=== PATIENT | male | born 1990 | race Two or more races ===

== ENCOUNTER 2016-05-29 18:50 | Inpatient (IN) | payer BC ==
[2016-05-29 20:28] VITALS: BP 130/76
[2016-05-29] MEDS ORDERED: Maalox 30 mL Cup PO PRN (20:38)
[2016-05-29] MEDS ORDERED: Ipratropium Neb 0.5 mg/2.5 mL UD HHN PRN (20:38)
[2016-05-29] MEDS ORDERED: Magnesium Hydroxide (MOM) 30 mL UDC PO PRN (20:38)
[2016-05-29] MEDS ORDERED: Sodium Chloride 0.9% 1,000 ML IV SCH (20:45)
[2016-05-29] MEDS ORDERED: guaiFENesin 200 MG/10 ML UDC PO PRN (20:48)
[2016-05-29 21:28] LABS: HEMATOCRIT 46.2 % (39.0-49.0); MEAN CELL VOLUME 90.9 fl (80-99); MEAN CORPUSCULAR HEMOGLOBIN 31.5 pg (26.0-30.0); MEAN CORPUSCULAR HGB CONC 34.6 pg (28.0-36.0); MEAN PLATELET VOLUME 8.9 fl; PLATELET COUNT 218 Th/cmm (150-400); RED BLOOD COUNT 5.08 Mil/cmm (4.30-5.70); WHITE BLOOD COUNT 12.5 Th/cmm (4.8-10.8)
[2016-05-29] MEDS: Albuterol/Ipratropium Neb 3 ML AERS HHN PRN (21:35)
[2016-05-29 21:38] LABS: ALB/GLOB RATIO 1.2 (1.0-1.8); ALKALINE PHOSPHATASE 104 U/L (34-104); ANION GAP 26.8 (7.0-16.0); BILIRUBIN,TOTAL 0.5 mg/dL (0.3-1.0); BUN - UREA NITROGEN 8 mg/dL (7-25); CALCIUM SERUM 9.1 mg/dL (8.6-10.3); CHLORIDE 103 mEq/L (98-107); GLUCOSE 298 mg/dL (70-105); POTASSIUM SERUM 3.6 mEq/L (3.5-5.1); SGOT 16 U/L (13-39); SGPT/ALT 23 U/L (7-52); SODIUM SERUM 133 mEq/L (136-145)
[2016-05-29 21:42] LABS: BAND NEUTROPHILE 8 % (0-10); NEUTROPHILS 78 % (40-80); PLATELET ESTIMATE ADEQUATE (NORMAL); PLATELET MORPHOLOGY NORMAL (NORMAL); TOTAL CELLS COUNTED 100
[2016-05-29 21:51] LABS: CARBON DIOXIDE 6.8 mEq/L (21.0-31.0)
[2016-05-29] MEDS: Levofloxacin 500mg/100mL 500 MG/100 ML BAG IV SCH (22:08)
[2016-05-29] MEDS: Sodium Chloride 0.9% 1,000 ML IV SCH (22:09)
[2016-05-29] MEDS ORDERED: Sodium Bicarbonate 8.4% 50mEq PFS IVP ONE (23:13)
[2016-05-29] MEDS: INSULIN ASPART SLIDING SCALE 100 UNITS/ML UNIT SUBQ SCH (23:21)
[2016-05-29] MEDS: Sodium Bicarbonate 8.4% 50mEq PFS IVP SCH (23:22)
[2016-05-30] MEDS: Sodium Bicarbonate 8.4% 50mEq PFS IVP SCH (03:55)
[2016-05-30] MEDS: INSULIN ASPART SLIDING SCALE 100 UNITS/ML UNIT SUBQ SCH ×5 (04:04→20:35)
[2016-05-30] MEDS: Sodium Chloride 0.9% 1,000 ML IV SCH ×2 (06:05→20:08)
[2016-05-30 07:14] LABS: HEMOGLOBIN 14.3 gm/dL (13.2-17.3); MEAN CELL VOLUME 89.8 fl (80-99); MEAN CORPUSCULAR HEMOGLOBIN 31.2 pg (26.0-30.0); MEAN CORPUSCULAR HGB CONC 34.7 pg (28.0-36.0); MEAN PLATELET VOLUME 8.4 fl; PLATELET COUNT 201 Th/cmm (150-400); RED BLOOD COUNT 4.58 Mil/cmm (4.30-5.70); RED CELL DISTRIBUTION WIDTH 11.5 % (11.5-20.0); WHITE BLOOD COUNT 10.5 Th/cmm (4.8-10.8)
[2016-05-30 07:27] LABS: HEMATOCRIT 41.1 % (39.0-49.0)
[2016-05-30 07:28] LABS: ALB/GLOB RATIO 1.1 (1.0-1.8); ALKALINE PHOSPHATASE 82 U/L (34-104); BILIRUBIN,TOTAL 0.5 mg/dL (0.3-1.0); BUN - UREA NITROGEN 8 mg/dL (7-25); CALCIUM SERUM 8.7 mg/dL (8.6-10.3); CARBON DIOXIDE 13.1 mEq/L (21.0-31.0); CHLORIDE 108 mEq/L (98-107); CHOLESTEROL 161 mg/dL (<200); CREATININE - SERUM 0.8 mg/dL (0.7-1.3); GLUCOSE 190 mg/dL (70-105); MAGNESIUM 2.1 mg/dL (1.9-2.7); SGOT 12 U/L (13-39); SGPT/ALT 18 U/L (7-52); SODIUM SERUM 136 mEq/L (136-145); TRIGLYCERIDES 94 mg/dL (<150)
[2016-05-30 07:49] LABS: ANION GAP 17.8 (7.0-16.0)
[2016-05-30 07:50] LABS: POTASSIUM SERUM 2.9 mEq/L (3.5-5.1)
[2016-05-30] MEDS ORDERED: SODIUM CHLORIDE 0.9% IV ONE (08:07)
[2016-05-30] MEDS ORDERED: POTASSIUM CHLORIDE IV ONE (08:07)
[2016-05-30] MEDS ORDERED: LIDOCAINE IV ONE (08:07)
[2016-05-30 08:31] LABS: BAND NEUTROPHILE 18 % (0-10); NEUTROPHILS 58 % (40-80); TOTAL CELLS COUNTED 100
[2016-05-30 08:32] LABS: PLATELET ESTIMATE ADEQUATE (NORMAL); PLATELET MORPHOLOGY NORMAL (NORMAL)
[2016-05-30] MEDS ORDERED: Pneumococcal Vaccine 0.5 mL Vial IM ONE (09:00)
[2016-05-30] MEDS ORDERED: Influenza Vaccine 0.5 mL Syr IM ONE (09:00)
--- NOTE | 2016-05-30 11:57 | Diagnostic Imaging Report ---
Portable chest x-ray HISTORY: Pneumonia The heart size is normal. Infiltrate noted in the right lung base. This may be chronic. However, pneumonia cannot be excluded. Clinical correlation is needed. No hilar or mediastinal abdomen amenities. IMPRESSION: 1. Right lower lobe infiltrate. Findings may be associated with pneumonia. Clinical correlation is needed.
--- NOTE | 2016-05-30 14:55 | Internal Medicine Prog Note ---
Internal Medicine Subjective - Subjective Service Date: 05/30/16 ([facility] dictated [id number]) Internal Medicine Objective - Results Result Diagrams: 05/30/16 06:45 05/30/16 06:45 Recent Labs: Laboratory Last Values WBC 10.5 Th/cmm (4.8-10.8) 05/30/16 06:45 RBC 4.58 Mil/cmm (4.30-5.70) 05/30/16 06:45 Hgb 14.3 gm/dL (13.2-17.3) 05/30/16 06:45 Hct 41.1 % (39.0-49.0) D 05/30/16 06:45 MCV 89.8 fl (80-99) 05/30/16 06:45 MCH 31.2 pg (26.0-30.0) H 05/30/16 06:45 MCHC Differential 34.7 pg (28.0-36.0) 05/30/16 06:45 RDW 11.5 % (11.5-20.0) 05/30/16 06:45 Plt Count 201 Th/cmm (150-400) 05/30/16 06:45 MPV 8.4 fl 05/30/16 06:45 Band Neutrophils % 18 % (0-10) H 05/30/16 06:45 Neutrophils (Manual) 58 % (40-80) 05/30/16 06:45 Lymphocytes 11 % (20-50) L 05/30/16 06:45 Monocytes 13 % (2-10) H 05/30/16 06:45 Eosinophils Not Reportable 05/30/16 06:45 Platelet Estimate ADEQUATE (NORMAL) 05/30/16 06:45 Platelet Morphology NORMAL (NORMAL) 05/30/16 06:45 RBC Morph Micro Appear NORMAL (NORMAL) 05/30/16 06:45 Sodium 136 mEq/L (136-145) 05/30/16 06:45 Potassium 2.9 mEq/L (3.5-5.1) L* 05/30/16 06:45 Chloride 108 mEq/L (98-107) H 05/30/16 06:45 Carbon Dioxide 13.1 mEq/L (21.0-31.0) L 05/30/16 06:45 Anion Gap 17.8 (7.0-16.0) H 05/30/16 06:45 BUN 8 mg/dL (7-25) 05/30/16 06:45 Creatinine 0.8 mg/dL (0.7-1.3) 05/30/16 06:45 Est GFR ( Amer) > 60.0 ml/min 05/30/16 06:45 Est GFR (Non-Af Amer) > 60.0 ml/min 05/30/16 06:45 BUN/Creatinine Ratio 10.0 05/30/16 06:45 Glucose 190 mg/dL (70-105) H 05/30/16 06:45 POC Glucose 241 MG/DL (70 - 105) H 05/30/16 12:17 Hemoglobin A1c % 14.0 % (4.0-6.0) H 05/29/16 21:03 Calcium 8.7 mg/dL (8.6-10.3) 05/30/16 06:45 Magnesium 2.1 mg/dL (1.9-2.7) 05/30/16 06:45 Total Bilirubin 0.5 mg/dL (0.3-1.0) 05/30/16 06:45 AST 12 U/L (13-39) L 05/30/16 06:45 ALT 18 U/L (7-52) 05/30/16 06:45 Alkaline Phosphatase 82 U/L (34-104) 05/30/16 06:45 Total Protein 6.9 gm/dL (6.0-8.3) 05/30/16 06:45 Albumin 3.6 gm/dL (4.2-5.5) L 05/30/16 06:45 Globulin 3.3 gm/dL 05/30/16 06:45 Albumin/Globulin Ratio 1.1 (1.0-1.8) 05/30/16 06:45 Triglycerides 94 mg/dL (<150) 05/30/16 06:45 Cholesterol 161 mg/dL (<200) 05/30/16 06:45 LDL Cholesterol Direct 103 mg/dL (75-193) 05/30/16 06:45 HDL Cholesterol 51 mg/dL (23-92) 05/30/16 06:45 TSH 0.41 uIU/ml (0.34-5.60) 05/30/16 06:45 - Physical Exam Vitals and I&O: Vital Signs Temp 99.5 F 05/30/16 11:45 Pulse 96 05/30/16 11:45 Resp 18 05/30/16 11:45 BP 123/70 05/30/16 11:45 Pulse Ox 97 05/30/16 11:45 Intake & Output 05/29/16 05/30/16 05/30/16 18:59 06:59 18:59 Intake Total 1291.667 Balance 1291.667 Weight (lbs) 123 lb Intake: Intake, IV Amount 1091.667 Levofloxacin 500mg/100mL 100 500 mg In 100 ml @ 100 mls/hr IV Q24HR [facility] Rx#: [id number] Sodium Chloride 0.9% 1, 991.667 000 ml @ 125 mls/hr IV . Q8H [facility] Rx#:[id number] Oral 200 Other: # Voids 1,900 # Bowel Movements 0 Stool Characteristics Soft Active Medications: Current Medications Acetaminophen (Tylenol) 650 mg PO Q6H PRN PRN Reason: Mild Pain/Headache/T above 101 Stop: 07/28/16 20:37 Last Admin: 05/30/16 05:30 Dose: 650 mg Al Hydrox/Mg Hydrox/Simethicone (Maalox) 30 ml PO Q6H PRN PRN Reason: GI DISTRESS Stop: 07/28/16 20:37 Last Admin: 05/29/16 23:20 Dose: 30 ml Albuterol/Ipratropium (Duoneb Neb) 3 ml HHN Q4H PRN PRN Reason: Wheezing Stop: 07/28/16 20:37 Last Admin: 05/29/16 21:35 Dose: 3 ml Clonidine HCl (Catapres) 0.1 mg PO Q6HR PRN PRN Reason: SBP GREATER THAN 160 Stop: 07/28/16 20:47 Glipizide (Glucotrol) 5 mg PO QDAC [facility] Stop: 07/29/16 06:29 Last Admin: 05/30/16 06:04 Dose: 5 mg Guaifenesin (Robitussin) 200 mg PO Q4HR PRN PRN Reason: Cough or Congestion Stop: 07/28/16 20:47 Heparin Sodium (Porcine) (Heparin) 5,000 units SUBQ Q12HR [facility] Stop: 07/28/16 20:59 Last Admin: 05/30/16 08:58 Dose: 5,000 units Levofloxacin (Levaquin Pb) 500 mg in 100 mls @ 100 mls/hr IV Q24HR [facility] Stop: 07/28/16 20:59 Last Infusion: 05/29/16 23:08 Dose: Infused Sodium Chloride (Nacl 0.9%) 1,000 mls @ 125 mls/hr IV .Q8H [facility] Stop: 07/28/16 20:47 Last Admin: 05/30/16 06:05 Dose: 125 mls/hr Insulin Aspart (Novolog Insulin Sliding Scale) 0 units SUBQ Q4HR [facility] PRN Reason: Protocol Stop: 07/29/16 00:00 Last Admin: 05/30/16 12:39 Dose: 6 units Ipratropium [place] (Atrovent Neb 0.5mg/2.5ml) 0.5 mg HHN Q6H PRN PRN Reason: Shortness of Breath Stop: 07/28/16 20:37 Magnesium Hydroxide (Milk Of Magnesia) 30 ml PO HS PRN PRN Reason: Constipation Stop: 07/28/16 20:37 Meclizine HCl (Antivert) 25 mg PO DAILY PRN PRN Reason: Nausea / Vomiting Stop: 07/28/16 20:47 Metformin HCl (Glucophage) 850 mg PO BIDWM [facility] Stop: 07/29/16 07:59 Last Admin: 05/30/16 08:57 Dose: 850 mg Ondansetron HCl (Zofran) 4 mg IVP Q6H PRN PRN Reason: Nausea / Vomiting Stop: 07/28/16 20:37 Last Admin: 05/30/16 12:42 Dose: 4 mg Zolpidem Tartrate (Ambien) 5 mg PO HS PRN PRN Reason: Insomnia Stop: 07/28/16 20:37
--- NOTE | 2016-05-30 15:48 | History & Physical ---
CHIEF COMPLAINT: Cough and chest congestion. HISTORY OF PRESENT ILLNESS: This is a 25-year-old male who is a direct admission from [facility]. According to the patient, he was having a 1-day history of shortness of breath and a 1-week history of productive cough. The patient states that he has been having difficulty to expectorate his secretions with his cough, is also associated with chest pain that is nonradiating. Due to insurance purposes, the patient is now here at [facility]. PAST MEDICAL HISTORY: Type 2 diabetes. PAST SURGICAL HISTORY: None per patient. ALLERGIES: No known allergies. SOCIAL HISTORY: The patient was a previous smoker, but denies any smoking, any streets drug or any alcohol. FAMILY HISTORY: Noncontributory. REVIEW OF SYSTEMS: CONSTITUTIONAL: Denies any fevers, any chills. HEENT: Denies any headache, any earache, nasal drainage or any throat pain. CARDIOVASCULAR: Denies any chest pain. RESPIRATORY: Admits to cough. GASTROINTESTINAL: Denies any nausea, vomiting, abdominal pain. GENITOURINARY: Denies any dysuria. All other systems are reviewed by me and are negative. PHYSICAL EXAMINATION: GENERAL: The patient is well developed, well nourished, in no acute distress. VITAL SIGNS: Temperature 99.5, heart rate 96, blood pressure 123/70, respirations 18, O2 97%. HEENT: Head; normocephalic, atraumatic. NECK: Supple. No mass. LUNGS: Few wheezes bilaterally upon auscultation. HEART: Regular rate and rhythm. No murmurs, no gallops. SKIN: Intact, warm and dry to touch. ABDOMEN: Soft, nontender, nondistended. Positive bowel sounds in all 4 quadrants. LABORATORY DATA: WBC 10.5, H and H of 14.3 and 41.1, platelet of 201. Sodium 136, potassium 2.9, BUN of 8, creatinine 0.8, hemoglobin A1c of 14. The patient had a chest x-ray done and the impression is right lower lobe infiltrate. Findings may be associated with pneumonia. ASSESSMENT: Diabetes, out of control, pneumonia, dehydration and diabetic ketoacidosis. PLAN: We will admit patient to the telemetry unit. The patient will be on IV antibiotics. We will monitor the patient's glucose level. We will put the patient on respiratory protocol. We will continue to monitor the patient. JOB# [id number]
[2016-05-30] MEDS ORDERED: Sodium Bicarbonate 8.4% 50mEq PFS IVP ONE (16:32)
[2016-05-30] MEDS: Levofloxacin 500mg/100mL 500 MG/100 ML BAG IV SCH (20:33)
--- NOTE | 2016-05-31 05:07 | Admit Criteria Form ---
Admit Criteria Forms - Admit Criteria Diagnosis: DIABETES Clinical Indications for Admission to Inpatient Care (Place 'X' for any and all applicable criteria): Admission is indicated by presence of ALL (if I & II) or ANY ONE (if III or IV) of the following (1)(2)(3)(4): [ X]I. Diabetes is uncontrolled as indicated by ANY ONE of the following: [ ]a) Diabetic ketoacidosis as indicated by ALL of the following (8): [ ]i) Hyperglycemia (eg, plasma glucose greater than 200 mg/ dL (11.1 mmol/L)) [ ]ii) Acidosis (eg, arterial pH less than 7.30, serum bicarbonate level less than 15 mEq/L (mmol/L)) [ ]iii) Moderate ketonuria or ketonemia [ ]b) Hyperglycemic hyperosmolar state as indicated by ALL of the following(9)(10): [ ]i) Neurologic dysfunction (eg, stupor, coma, hemiparesis , seizure)(13) [ ]ii) Plasma glucose greater than 600 mg/dL (33.3 mmol/L) [ ]iii) Serum osmolality greater than 320 mOsm/kg (mmol/kg) [X ]c) Severe signs or symptoms secondary to hyperglycemia indicated by ANY ONE of the following: [ ]i) Altered mental status(10) [ ]ii) Significant hypovolemia or dehydration [ ]iii) Intractable nausea or vomiting [ ]iv) Unexplained fever or severe infection [X ]v) Severe electrolyte abnormality (eg, hypokalemia, hyperkalemia, hypernatremia) [ X]II. Management at other levels of care (Also use Diabetes: Observation Care as appropriate) is not feasible because of ANY ONE of the following: [ ]a) Condition was not adequately corrected with treatment at other levels of care. [X ]b) Treatment at other levels of care is not appropriate because of condition severity (eg, hyperosmolar coma). [ ]III. Contraindications and/or Inappropriate clinical situations for Observational Care in patients with Diabetes, when ANY ONE of the following is required: [ ]a) Patient require specific diagnostic workup or therapeutic intervention 22 [ ]b) Patient with abnormal vital signs or altered mental status 23 [ ]IV. General contraindications and/or Inappropriate clinical situations for Observational Care in patients with Diabetes, when ANY ONE of the following is required: [ ]a) Prediction of prolongation of LOS based on ANY ONE of the following may be considered as a contraindication for observational care 2, 3, 4, 5, 6, 7, 8, 9, 10, 11 [ ]i) Age > 65 yrs. [ ]ii) Patient arriving by ambulance [ ]iii) Patient with high acuity [ ]iv) Patient requiring vital sign monitoring [ ]v) Patient on IV medication [ ]b) Systolic blood pressures 180mmHg 3,12 [ ]c) Patient with altered mental status including delirium and other alteration of consciousness, (3) [ ]d) Patient whose discharge disposition will be to a [place] [facility] home or rehabilitation home should not be managed in Emergency Department Observation Unit. CMS rule requires 3 days hospital stay before such placement.3,13 [ ]e) Patient with failure to thrive due to broad array of etiologies 3,16,17 [ ]f) Inability to ambulate 3,14 Extended stay beyond goal length of stay may be needed for(3)(20): [ ]a) Treatment of precipitating causes [ ]b) Development of hypoglycemia [ ]c) Complications of treatment [ ]d) Complications of decompensated diabetes (eg, acute gastric dilatation, persistent metabolic or neurologic derangement) [ ]e) Active Comorbidities [ ]f) Older patients( 65 years or older) The original [facility] the [facility] content created by [employer] has been revised. The portions of the content which have been revised are identified through the use of italic text or in bold,and [facility] has neither reviewed nor approved the modified material. All other unmodified content is copyright [facility] [employer]. Please see references footnoted in the original [facility] edition 2016
[2016-05-31 05:58] LABS: HEMATOCRIT 42.9 % (39.0-49.0); HEMOGLOBIN 14.7 gm/dL (13.2-17.3); MEAN CELL VOLUME 91.6 fl (80-99); MEAN CORPUSCULAR HEMOGLOBIN 31.4 pg (26.0-30.0); MEAN CORPUSCULAR HGB CONC 34.2 pg (28.0-36.0); MEAN PLATELET VOLUME 8.6 fl; PLATELET COUNT 226 Th/cmm (150-400); RED BLOOD COUNT 4.69 Mil/cmm (4.30-5.70); RED CELL DISTRIBUTION WIDTH 11.9 % (11.5-20.0)
[2016-05-31] MEDS: Sodium Chloride 0.9% 1,000 ML IV SCH (06:15)
[2016-05-31 06:25] LABS: BAND NEUTROPHILE 8 % (0-10); EOSINOPHIL 1 % (0-5); NEUTROPHILS 76 % (40-80); TOTAL CELLS COUNTED 100
[2016-05-31 06:26] LABS: PLATELET ESTIMATE ADEQUATE (NORMAL); PLATELET MORPHOLOGY NORMAL (NORMAL)
[2016-05-31 06:54] LABS: MAGNESIUM 1.9 mg/dL (1.9-2.7); PHOSPHOROUS 1.3 mg/dL (2.5-5.0)
[2016-05-31 06:55] LABS: ANION GAP 22.5 (7.0-16.0); BUN - UREA NITROGEN 6 mg/dL (7-25); BUN/CREATININE RATIO 7.5; CALCIUM SERUM 9.4 mg/dL (8.6-10.3); CARBON DIOXIDE 11.7 mEq/L (21.0-31.0); CHLORIDE 104 mEq/L (98-107); CREATININE - SERUM 0.8 mg/dL (0.7-1.3); GLUCOSE 246 mg/dL (70-105); POTASSIUM SERUM 3.2 mEq/L (3.5-5.1); SODIUM SERUM 135 mEq/L (136-145)
[2016-05-31] MEDS: INSULIN ASPART SLIDING SCALE 100 UNITS/ML UNIT SUBQ SCH ×4 (06:56→21:04)
[2016-05-31 09:54] LABS: pH 7.32 (7.35-7.45)
[2016-05-31 09:55] LABS: ABG SOURCE Arterial; BE(B) -12.3 mmol/L (-3.0-3.0); FIO2 21; HCO3 11.9 mmol/L (20.0-26.0)
[2016-05-31 11:10] LABS: FOLIC ACID 11.8 ng/mL (>3.0)
[2016-05-31] MEDS ORDERED: Potassium Phosphate 30 MMOLE in Sodium Chloride 0.9% 250 ML IV ONE (11:15)
--- NOTE | 2016-05-31 12:33 | Diagnostic Imaging Report ---
CT Chest without IV contrast HISTORY: Pneumonia COMPARISON: Chest x-ray 05/30/2016. Technique: Axial images were obtained from the base of the neck to the upper abdomen without IV contrast. Reconstructions were made. Total DLP 129 CTD I 3.5 Findings: Exam is limited due to lack of IV contrast. No evidence of mediastinal lymphadenopathy. The heart size is normal. No evidence of any aortic aneurysm. Extensive right lung infiltrates are noted involving the right lower lobe with small right effusion. Consolidative changes are noted. Minimal left basal airspace disease is noted. The upper abdomen demonstrates no acute abnormalities. The osseous structures are intact. IMPRESSION: Extensive right lower lobe infiltrates with areas of consolidation and small right effusion noted. Minimal left basal airspace disease.
[2016-05-31] MEDS ORDERED: POTASSIUM PHOSPHATE IV ONE (15:00)
[2016-05-31] MEDS ORDERED: SODIUM CHLORIDE IV ONE (15:00)
--- NOTE | 2016-05-31 15:53 | Internal Medicine Prog Note ---
Internal Medicine Subjective - Subjective Service Date: 05/31/16 Patient seen and examined:: with staff Patient is:: awake Internal Medicine Objective - Results Result Diagrams: 05/31/16 05:38 05/31/16 05:38 Recent Labs: Laboratory Last Values WBC 12.0 Th/cmm (4.8-10.8) H 05/31/16 05:38 RBC 4.69 Mil/cmm (4.30-5.70) 05/31/16 05:38 Hgb 14.7 gm/dL (13.2-17.3) 05/31/16 05:38 Hct 42.9 % (39.0-49.0) 05/31/16 05:38 MCV 91.6 fl (80-99) 05/31/16 05:38 MCH 31.4 pg (26.0-30.0) H 05/31/16 05:38 MCHC Differential 34.2 pg (28.0-36.0) 05/31/16 05:38 RDW 11.9 % (11.5-20.0) 05/31/16 05:38 Plt Count 226 Th/cmm (150-400) 05/31/16 05:38 MPV 8.6 fl 05/31/16 05:38 Band Neutrophils % 8 % (0-10) 05/31/16 05:38 Neutrophils (Manual) 76 % (40-80) 05/31/16 05:38 Lymphocytes 6 % (20-50) L 05/31/16 05:38 Monocytes 9 % (2-10) 05/31/16 05:38 Eosinophils 1 % (0-5) 05/31/16 05:38 Platelet Estimate ADEQUATE (NORMAL) 05/31/16 05:38 Platelet Morphology NORMAL (NORMAL) 05/31/16 05:38 RBC Morph Micro Appear NORMAL (NORMAL) 05/31/16 05:38 Specimen Source Arterial 05/31/16 09:35 Sample Site RB 05/31/16 09:35 pH 7.32 (7.35-7.45) L 05/31/16 09:35 pCO2 23.0 mmHg (35.0-45.0) L* 05/31/16 09:35 pO2 94.0 mmHg (80.0-100.0) 05/31/16 09:35 HCO3 11.9 mmol/L (20.0-26.0) L 05/31/16 09:35 Base Excess -12.3 mmol/L (-3.0-3.0) L 05/31/16 09:35 O2 Saturation 97.0 % (92.0-100.0) 05/31/16 09:35 Derrick Test NA 05/31/16 09:35 Vent Rate NA 05/31/16 09:35 Inspired O2 21 05/31/16 09:35 Tidal Volume NA 05/31/16 09:35 PEEP NA 05/31/16 09:35 Pressure (ins/psv/peep) NA 05/31/16 09:35 Critical Value E.WOOD 05/31/16 09:35 Sodium 135 mEq/L (136-145) L 05/31/16 05:38 Potassium 3.2 mEq/L (3.5-5.1) L 05/31/16 05:38 Chloride 104 mEq/L (98-107) 05/31/16 05:38 Carbon Dioxide 11.7 mEq/L (21.0-31.0) L 05/31/16 05:38 Anion Gap 22.5 (7.0-16.0) H 05/31/16 05:38 BUN 6 mg/dL (7-25) L 05/31/16 05:38 Creatinine 0.8 mg/dL (0.7-1.3) 05/31/16 05:38 Est GFR ( Amer) > 60.0 ml/min 05/31/16 05:38 Est GFR (Non-Af Amer) > 60.0 ml/min 05/31/16 05:38 BUN/Creatinine Ratio 7.5 05/31/16 05:38 Glucose 246 mg/dL (70-105) H 05/31/16 05:38 POC Glucose 366 MG/DL (70 - 105) H 05/31/16 11:43 Hemoglobin A1c % 14.0 % (4.0-6.0) H 05/29/16 21:03 Calcium 9.4 mg/dL (8.6-10.3) 05/31/16 05:38 Phosphorus 1.3 mg/dL (2.5-5.0) L 05/31/16 05:38 Magnesium 1.9 mg/dL (1.9-2.7) 05/31/16 05:38 Total Bilirubin 0.5 mg/dL (0.3-1.0) 05/30/16 06:45 AST 12 U/L (13-39) L 05/30/16 06:45 ALT 18 U/L (7-52) 05/30/16 06:45 Alkaline Phosphatase 82 U/L (34-104) 05/30/16 06:45 Total Protein 6.9 gm/dL (6.0-8.3) 05/30/16 06:45 Albumin 3.6 gm/dL (4.2-5.5) L 05/30/16 06:45 Globulin 3.3 gm/dL 05/30/16 06:45 Albumin/Globulin Ratio 1.1 (1.0-1.8) 05/30/16 06:45 Triglycerides 94 mg/dL (<150) 05/30/16 06:45 Cholesterol 161 mg/dL (<200) 05/30/16 06:45 LDL Cholesterol Direct 103 mg/dL (75-193) 05/30/16 06:45 HDL Cholesterol 51 mg/dL (23-92) 05/30/16 06:45 Vitamin B12 1247 pg/mL (211-946) H 05/30/16 06:45 Folic Acid 11.8 ng/mL (>3.0) 05/30/16 06:45 TSH 0.41 uIU/ml (0.34-5.60) 05/30/16 06:45 - Physical Exam Vitals and I&O: Vital Signs Temp 99.5 F 05/31/16 12:00 Pulse 86 05/31/16 12:00 Resp 18 05/31/16 14:00 BP 107/68 05/31/16 12:00 Pulse Ox 99 05/31/16 12:00 Intake & Output 05/30/16 05/31/16 05/31/16 18:59 06:59 18:59 Intake Total 1000 1800 Output Total 1501 Balance 1000 299 Weight (lbs) 130 lb Intake: Intake, IV Amount 1000 1000 Sodium Chloride 0.9% 1, 1000 1000 000 ml @ 125 mls/hr IV . Q8H [facility] Rx#:[id number] Oral 800 Output: Urine 1500 Stool 1 Other: Stool Characteristics Soft Soft Formed Formed Active Medications: Current Medications Acetaminophen (Tylenol) 650 mg PO Q6H PRN PRN Reason: Mild Pain/Headache/T above 101 Stop: 07/28/16 20:37 Last Admin: 05/30/16 05:30 Dose: 650 mg Al Hydrox/Mg Hydrox/Simethicone (Maalox) 30 ml PO Q6H PRN PRN Reason: GI DISTRESS Stop: 07/28/16 20:37 Last Admin: 05/29/16 23:20 Dose: 30 ml Albuterol/Ipratropium (Duoneb Neb) 3 ml HHN Q4H PRN PRN Reason: Wheezing Stop: 07/28/16 20:37 Last Admin: 05/29/16 21:35 Dose: 3 ml Clonidine HCl (Catapres) 0.1 mg PO Q6HR PRN PRN Reason: SBP GREATER THAN 160 Stop: 07/28/16 20:47 Glipizide (Glucotrol) 10 mg PO BID [facility] Stop: 07/30/16 15:44 Guaifenesin (Robitussin) 200 mg PO Q4HR PRN PRN Reason: Cough or Congestion Stop: 07/28/16 20:47 Heparin Sodium (Porcine) (Heparin) 5,000 units SUBQ Q12HR [facility] Stop: 07/28/16 20:59 Last Admin: 05/31/16 09:11 Dose: 5,000 units Sodium Chloride (Nacl 0.9%) 1,000 mls @ 125 mls/hr IV .Q8H [facility] Stop: 07/28/16 20:47 Last Admin: 05/31/16 06:15 Dose: 125 mls/hr Potassium Phosphate 30 mmole/ (Sodium Chloride) 1,010 mls @ 125 mls/hr IV X1 ONE Stop: 05/31/16 23:04 Piperacillin Sod/Tazobactam (Sod 4.5 gm/ Sodium Chloride) 100 mls @ 100 mls/hr IV Q8HR [facility] Stop: 07/30/16 20:59 Insulin Aspart (Novolog Insulin Sliding Scale) 0 units SUBQ ACHS [facility] PRN Reason: Protocol Stop: 07/29/16 20:59 Last Admin: 05/31/16 12:23 Dose: 15 units Ipratropium [place] (Atrovent Neb 0.5mg/2.5ml) 0.5 mg HHN Q6H PRN PRN Reason: Shortness of Breath Stop: 07/28/16 20:37 Magnesium Hydroxide (Milk Of Magnesia) 30 ml PO HS PRN PRN Reason: Constipation Stop: 07/28/16 20:37 Meclizine HCl (Antivert) 25 mg PO DAILY PRN PRN Reason: Nausea / Vomiting Stop: 07/28/16 20:47 Metformin HCl (Glucophage) 850 mg PO BIDWM [facility] Stop: 07/29/16 07:59 Last Admin: 05/31/16 09:11 Dose: 850 mg Mupirocin (Bactroban Oint) 1 appl NS BID [facility] Stop: 06/05/16 09:01 Ondansetron HCl (Zofran) 4 mg IVP Q6H PRN PRN Reason: Nausea / Vomiting Stop: 07/28/16 20:37 Last Admin: 05/30/16 12:42 Dose: 4 mg Zolpidem Tartrate (Ambien) 5 mg PO HS PRN PRN Reason: Insomnia Stop: 07/28/16 20:37 General: alert HEENT: NC/AT, PERRLA Neck: Supple Lungs: ronchi Cardiovascular: RRR, Normal S1, Normal S2, without murmur Abdomen: soft non-tender Internal Medicine Assmt/Plan - Assessment Assessment: RIGHT LL PNA Diabetes out of control dehydration dka - Plan Plan: JODI LEVAQEMMIE, ADDED ZOSYN SUPPLEMENTAL O2 NEEDED BRONCHODILATORS PULMO CONSULT
[2016-06-01] MEDS: INSULIN ASPART SLIDING SCALE 100 UNITS/ML UNIT SUBQ SCH ×4 (07:15→21:22)
[2016-06-01 10:39] LABS: URINE BILIRUBIN SMALL (NEGATIVE); URINE COLOR YELLOW; URINE GLUCOSE (UA) 500 mg/dL (NEGATIVE)
[2016-06-01 10:40] LABS: URINE BLOOD NEGATIVE (NEGATIVE); URINE KETONE >=80 mg/dL (NEGATIVE); URINE PROTEIN 30 mg/dL (NEGATIVE)
[2016-06-01 10:42] LABS: URINE BACTERIA NONE SEEN /hpf (NONE SEEN); URINE EPITHELIAL CELLS RARE /lpf (FEW); URINE RBC NONE SEEN /hpf (0-5); URINE WBC 0-2 /hpf (0-5)
[2016-06-01] MEDS: Sodium Chloride 0.9% 1,000 ML IV SCH (11:15)
--- NOTE | 2016-06-01 15:01 | Internal Medicine Prog Note ---
Internal Medicine Subjective - Subjective Service Date: 06/01/16 Patient seen and examined:: with staff Patient is:: awake Per staff patient is:: no adverse event Internal Medicine Objective - Results Result Diagrams: 05/31/16 05:38 05/31/16 05:38 Recent Labs: Laboratory Last Values WBC 12.0 Th/cmm (4.8-10.8) H 05/31/16 05:38 RBC 4.69 Mil/cmm (4.30-5.70) 05/31/16 05:38 Hgb 14.7 gm/dL (13.2-17.3) 05/31/16 05:38 Hct 42.9 % (39.0-49.0) 05/31/16 05:38 MCV 91.6 fl (80-99) 05/31/16 05:38 MCH 31.4 pg (26.0-30.0) H 05/31/16 05:38 MCHC Differential 34.2 pg (28.0-36.0) 05/31/16 05:38 RDW 11.9 % (11.5-20.0) 05/31/16 05:38 Plt Count 226 Th/cmm (150-400) 05/31/16 05:38 MPV 8.6 fl 05/31/16 05:38 Band Neutrophils % 8 % (0-10) 05/31/16 05:38 Neutrophils (Manual) 76 % (40-80) 05/31/16 05:38 Lymphocytes 6 % (20-50) L 05/31/16 05:38 Monocytes 9 % (2-10) 05/31/16 05:38 Eosinophils 1 % (0-5) 05/31/16 05:38 Platelet Estimate ADEQUATE (NORMAL) 05/31/16 05:38 Platelet Morphology NORMAL (NORMAL) 05/31/16 05:38 RBC Morph Micro Appear NORMAL (NORMAL) 05/31/16 05:38 Specimen Source Arterial 05/31/16 09:35 Sample Site RB 05/31/16 09:35 pH 7.32 (7.35-7.45) L 05/31/16 09:35 pCO2 23.0 mmHg (35.0-45.0) L* 05/31/16 09:35 pO2 94.0 mmHg (80.0-100.0) 05/31/16 09:35 HCO3 11.9 mmol/L (20.0-26.0) L 05/31/16 09:35 Base Excess -12.3 mmol/L (-3.0-3.0) L 05/31/16 09:35 O2 Saturation 97.0 % (92.0-100.0) 05/31/16 09:35 Derrick Test NA 05/31/16 09:35 Vent Rate NA 05/31/16 09:35 Inspired O2 21 05/31/16 09:35 Tidal Volume NA 05/31/16 09:35 PEEP NA 05/31/16 09:35 Pressure (ins/psv/peep) NA 05/31/16 09:35 Critical Value E.WOOD 05/31/16 09:35 Sodium 135 mEq/L (136-145) L 05/31/16 05:38 Potassium 3.2 mEq/L (3.5-5.1) L 05/31/16 05:38 Chloride 104 mEq/L (98-107) 05/31/16 05:38 Carbon Dioxide 11.7 mEq/L (21.0-31.0) L 05/31/16 05:38 Anion Gap 22.5 (7.0-16.0) H 05/31/16 05:38 BUN 6 mg/dL (7-25) L 05/31/16 05:38 Creatinine 0.8 mg/dL (0.7-1.3) 05/31/16 05:38 Est GFR ( Amer) > 60.0 ml/min 05/31/16 05:38 Est GFR (Non-Af Amer) > 60.0 ml/min 05/31/16 05:38 BUN/Creatinine Ratio 7.5 05/31/16 05:38 Glucose 246 mg/dL (70-105) H 05/31/16 05:38 POC Glucose 386 MG/DL (70 - 105) H 06/01/16 14:30 Hemoglobin A1c % 14.0 % (4.0-6.0) H 05/29/16 21:03 Calcium 9.4 mg/dL (8.6-10.3) 05/31/16 05:38 Phosphorus 1.3 mg/dL (2.5-5.0) L 05/31/16 05:38 Magnesium 1.9 mg/dL (1.9-2.7) 05/31/16 05:38 Total Bilirubin 0.5 mg/dL (0.3-1.0) 05/30/16 06:45 AST 12 U/L (13-39) L 05/30/16 06:45 ALT 18 U/L (7-52) 05/30/16 06:45 Alkaline Phosphatase 82 U/L (34-104) 05/30/16 06:45 Total Protein 6.9 gm/dL (6.0-8.3) 05/30/16 06:45 Albumin 3.6 gm/dL (4.2-5.5) L 05/30/16 06:45 Globulin 3.3 gm/dL 05/30/16 06:45 Albumin/Globulin Ratio 1.1 (1.0-1.8) 05/30/16 06:45 Triglycerides 94 mg/dL (<150) 05/30/16 06:45 Cholesterol 161 mg/dL (<200) 05/30/16 06:45 LDL Cholesterol Direct 103 mg/dL (75-193) 05/30/16 06:45 HDL Cholesterol 51 mg/dL (23-92) 05/30/16 06:45 Vitamin B12 1247 pg/mL (211-946) H 05/30/16 06:45 Folic Acid 11.8 ng/mL (>3.0) 05/30/16 06:45 TSH 0.41 uIU/ml (0.34-5.60) 05/30/16 06:45 Urine Source CLEAN C 06/01/16 08:50 Urine Color YELLOW 06/01/16 08:50 Urine Clarity SL. CLOUDY (CLEAR) 06/01/16 08:50 Urine pH 6.0 06/01/16 08:50 Ur Specific [place] 1.020 (1.005-1.030) 06/01/16 08:50 Urine Protein 30 mg/dL (NEGATIVE) H 06/01/16 08:50 Urine Glucose (UA) 500 mg/dL (NEGATIVE) H 06/01/16 08:50 Urine Clinitest 1000 mg/dL (NEGATIVE) 06/01/16 08:50 Urine Ketones >=80 mg/dL (NEGATIVE) H 06/01/16 08:50 Urine Blood NEGATIVE (NEGATIVE) 06/01/16 08:50 Urine Nitrate NEGATIVE (NEGATIVE) 06/01/16 08:50 Urine Bilirubin SMALL (NEGATIVE) H 06/01/16 08:50 Urine Urobilinogen 1.0 E.U./dL (0.2 - 1.0) 06/01/16 08:50 Ur Leukocyte Esterase NEGATIVE (NEGATIVE) 06/01/16 08:50 Urine RBC NONE SEEN /hpf (0-5) 06/01/16 08:50 Urine WBC 0-2 /hpf (0-5) 06/01/16 08:50 Ur Epithelial Cells RARE /lpf (FEW) 06/01/16 08:50 Urine Bacteria NONE SEEN /hpf (NONE SEEN) 06/01/16 08:50 - Physical Exam Vitals and I&O: Vital Signs Temp 98.9 F 06/01/16 12:00 Pulse 76 06/01/16 12:00 Resp 18 06/01/16 12:00 BP 101/58 06/01/16 12:00 Pulse Ox 98 06/01/16 12:00 Intake & Output 05/31/16 06/01/16 06/01/16 18:59 06:59 18:59 Intake Total 2500 200 Output Total 0 Balance 2500 200 Weight (lbs) 130 lb Intake: Intake, IV Amount 1000 200 Piperacillin Sodium/ 200 Tazobact 4.5 gm In Sodium Chloride 0.9% 100 ml @ 100 mls/hr IV Q8HR [facility] Rx #:[id number] Sodium Chloride 0.9% 1, 1000 000 ml @ 125 mls/hr IV . Q8H [facility] Rx#:[id number] Oral 1500 Output: Stool 0 Other: # Voids 3 Stool Characteristics Soft Formed Formed Active Medications: Current Medications Acetaminophen (Tylenol) 650 mg PO Q6H PRN PRN Reason: Mild Pain/Headache/T above 101 Stop: 07/28/16 20:37 Last Admin: 06/01/16 04:16 Dose: 650 mg Al Hydrox/Mg Hydrox/Simethicone (Maalox) 30 ml PO Q6H PRN PRN Reason: GI DISTRESS Stop: 07/28/16 20:37 Last Admin: 05/29/16 23:20 Dose: 30 ml Albuterol/Ipratropium (Duoneb Neb) 3 ml HHN Q4H PRN PRN Reason: Wheezing Stop: 07/28/16 20:37 Last Admin: 05/29/16 21:35 Dose: 3 ml Clonidine HCl (Catapres) 0.1 mg PO Q6HR PRN PRN Reason: SBP GREATER THAN 160 Stop: 07/28/16 20:47 Glipizide (Glucotrol) 10 mg PO BID [facility] Stop: 07/30/16 15:44 Last Admin: 06/01/16 10:16 Dose: 10 mg Guaifenesin (Robitussin) 200 mg PO Q4HR PRN PRN Reason: Cough or Congestion Stop: 07/28/16 20:47 Heparin Sodium (Porcine) (Heparin) 5,000 units SUBQ Q12HR [facility] Stop: 07/28/16 20:59 Last Admin: 06/01/16 10:17 Dose: 5,000 units Sodium Chloride (Nacl 0.9%) 1,000 mls @ 125 mls/hr IV .Q8H [facility] Stop: 07/28/16 20:47 Last Admin: 06/01/16 11:15 Dose: 125 mls/hr Piperacillin Sod/Tazobactam (Sod 4.5 gm/ Sodium Chloride) 100 mls @ 100 mls/hr IV Q8HR [facility] Stop: 07/30/16 20:59 Last Admin: 06/01/16 14:28 Dose: 100 mls/hr Insulin Aspart (Novolog Insulin Sliding Scale) 0 units SUBQ ACHS [facility] PRN Reason: Protocol Stop: 07/29/16 20:59 Last Admin: 06/01/16 14:42 Dose: 15 units Ipratropium [place] (Atrovent Neb 0.5mg/2.5ml) 0.5 mg HHN Q6H PRN PRN Reason: Shortness of Breath Stop: 07/28/16 20:37 Magnesium Hydroxide (Milk Of Magnesia) 30 ml PO HS PRN PRN Reason: Constipation Stop: 07/28/16 20:37 Meclizine HCl (Antivert) 25 mg PO DAILY PRN PRN Reason: Nausea / Vomiting Stop: 07/28/16 20:47 Metformin HCl (Glucophage) 850 mg PO BIDWM [facility] Stop: 07/29/16 07:59 Last Admin: 06/01/16 10:17 Dose: 850 mg Miscellaneous (Vancomycin Iv Per Pharmacy) 1 ea [facility] PRN PRN PRN Reason: PROTOCOL Stop: 07/31/16 14:47 Mupirocin (Bactroban Oint) 1 appl NS BID [facility] Stop: 06/05/16 09:01 Last Admin: 06/01/16 10:18 Dose: 1 appl Ondansetron HCl (Zofran) 4 mg IVP Q6H PRN PRN Reason: Nausea / Vomiting Stop: 07/28/16 20:37 Last Admin: 05/30/16 12:42 Dose: 4 mg Sodium Bicarbonate (Sodium Bicarbonate) 650 mg PO BID [facility] PRN Reason: Protocol Stop: 07/31/16 16:59 Zolpidem Tartrate (Ambien) 5 mg PO HS PRN PRN Reason: Insomnia Stop: 07/28/16 20:37 General: alert Neck: Supple Lungs: CTAB Cardiovascular: RRR, Normal S1, Normal S2, without murmur Abdomen: soft non-tender Neurological: no change Internal Medicine Assmt/Plan - Assessment Assessment: RIGHT LL PNA Diabetes out of control dehydration dka - Plan Plan: ZOSYN ivpb 2decho SUPPLEMENTAL O2 NEEDED BRONCHODILATORS
[2016-06-02 05:29] LABS: % BASOPHILS 0.2 % (0.0-2.0); % EOSINOPHILS 1.3 % (0.0-5.0); % LYMPHOCYTES 12.2 % (20.0-50.0); % MONOCYTES 9.8 % (2.0-10.0); % NEUTROPHILS 76.5 % (40.0-80.0); MEAN CELL VOLUME 91.1 fl (80-99); MEAN CORPUSCULAR HEMOGLOBIN 30.8 pg (26.0-30.0); MEAN CORPUSCULAR HGB CONC 33.9 pg (28.0-36.0); MEAN PLATELET VOLUME 7.5 fl; NEUTROPHILE ABSOLUTE 7.3 Th/cmm (1.8-8.0); PLATELET COUNT 271 Th/cmm (150-400); RED BLOOD COUNT 3.96 Mil/cmm (4.30-5.70); RED CELL DISTRIBUTION WIDTH 11.3 % (11.5-20.0)
[2016-06-02 05:31] LABS: HEMOGLOBIN 12.2 gm/dL (13.2-17.3); WHITE BLOOD COUNT 9.4 Th/cmm (4.8-10.8)
[2016-06-02 05:32] LABS: HEMATOCRIT 36.1 % (39.0-49.0)
[2016-06-02 05:49] LABS: ANION GAP 15.9 (7.0-16.0); BUN - UREA NITROGEN 7 mg/dL (7-25); BUN/CREATININE RATIO 11.7; CALCIUM SERUM 8.5 mg/dL (8.6-10.3); CARBON DIOXIDE 19.1 mEq/L (21.0-31.0); CHLORIDE 100 mEq/L (98-107); CREATININE - SERUM 0.6 mg/dL (0.7-1.3); GLUCOSE 279 mg/dL (70-105); SODIUM SERUM 132 mEq/L (136-145)
[2016-06-02] MEDS: INSULIN ASPART SLIDING SCALE 100 UNITS/ML UNIT SUBQ SCH ×4 (06:45→21:26)
[2016-06-02] MEDS ORDERED: KCL 20mEq/100mL Premix 20 MEQ/100 ML PIGGYBACK IV SCH (08:15)
--- NOTE | 2016-06-02 08:39 | Consultation ---
Patient of Dr. Lozano. Thank you very much, Dr. Lozano, for this consultation. HISTORY OF PRESENT ILLNESS: This is a 25-year-old male who was admitted. Initially, he was seen at [facility] for cough, congestion, fever, chest pain and was diagnosed with pneumonia, transferred here for further treatment and management. The patient has improved since then and he feels better, less chest congestion, less pain and less cough and shortness of breath. PAST MEDICAL HISTORY: As above. SOCIAL HISTORY: Heavy drinking history and cocaine use. Denies any IV drug use. Denies any smoking. PHYSICAL EXAMINATION: GENERAL: Awake, alert, not in acute distress. VITAL SIGNS: Temperature is 99.1, T-max temperature 98.4, pulse 94, respirations 17, blood pressure 120/61, saturation 98%. HEENT: Atraumatic and normocephalic. Pupils reactive to light and accommodation. Ears, nose and throat normal. NECK: Supple. No JVD. CHEST: There are rhonchi bilaterally, more on the right than the left. HEART: Regular rate and rhythm. ABDOMEN: Soft. EXTREMITIES: No edema. LABORATORY DATA: ABG, pH 7.32, pCO2 of 23, pO2 of 94. Bicarbonate is 11. WBC is 12.0, hemoglobin 14.7. CO2 was [address] of chest showed extensive pneumonia, right lower lobe. IMPRESSION: This is a 25-year-old male with: 1. Severe pneumonia, most likely with methicillin-resistant Staphylococcus aureus bacteriology. 2. Need to rule out any bacteremia. 3. Metabolic acidosis. PLAN: 1. IV antibiotics, add vancomycin. 2. Bicarbonate. 3. Nebulizer treatment. 4. IV fluids. 5. Follow up chest x-ray and labs. I will follow the patient with you. Thank you very much for this consultation. JOB# [id number]
[2016-06-02] MEDS: Sodium Chloride 0.9% 1,000 ML IV SCH ×2 (09:06→22:27)
[2016-06-02] MEDS ORDERED: Potassium Chloride 40 MEQ, Lidocaine 1% 20mL Vial 25 MG in Sodium Chloride 0.9% 250 ML IV ONE (09:52)
--- NOTE | 2016-06-02 12:00 | Diagnostic Imaging Report ---
Portable chest x-ray HISTORY: Shortness of breath Compared with prior exam of 05/30/2016, there is persistent parenchymal density in the left lung base unchanged. The finding corresponds density noted on the earlier CT scan of 05/30/2016 consistent with atelectasis and or consolidation. The finding may be chronic. Clinical correlation is needed. The overall heart size is normal. No hilar or mediastinal abnormalities. IMPRESSION: 1. No change in parenchymal density within the right lower lobe as noted above.
--- NOTE | 2016-06-02 14:28 | Internal Medicine Prog Note ---
Internal Medicine Subjective - Subjective Service Date: 06/02/16 Patient seen and examined:: with staff Patient is:: awake Per staff patient is:: no adverse event Internal Medicine Objective - Results Result Diagrams: 06/02/16 05:13 06/02/16 05:13 Recent Labs: Laboratory Last Values WBC 9.4 Th/cmm (4.8-10.8) D 06/02/16 05:13 RBC 3.96 Mil/cmm (4.30-5.70) L 06/02/16 05:13 Hgb 12.2 gm/dL (13.2-17.3) L D 06/02/16 05:13 Hct 36.1 % (39.0-49.0) L D 06/02/16 05:13 MCV 91.1 fl (80-99) 06/02/16 05:13 MCH 30.8 pg (26.0-30.0) H 06/02/16 05:13 MCHC Differential 33.9 pg (28.0-36.0) 06/02/16 05:13 RDW 11.3 % (11.5-20.0) L 06/02/16 05:13 Plt Count 271 Th/cmm (150-400) 06/02/16 05:13 MPV 7.5 fl 06/02/16 05:13 Neutrophils % 76.5 % (40.0-80.0) 06/02/16 05:13 Band Neutrophils % 8 % (0-10) 05/31/16 05:38 Lymphocytes % 12.2 % (20.0-50.0) L 06/02/16 05:13 Monocytes % 9.8 % (2.0-10.0) 06/02/16 05:13 Eosinophils % 1.3 % (0.0-5.0) 06/02/16 05:13 Basophils % 0.2 % (0.0-2.0) 06/02/16 05:13 Neutrophils (Manual) 76 % (40-80) 05/31/16 05:38 Lymphocytes 6 % (20-50) L 05/31/16 05:38 Monocytes 9 % (2-10) 05/31/16 05:38 Eosinophils 1 % (0-5) 05/31/16 05:38 Platelet Estimate ADEQUATE (NORMAL) 05/31/16 05:38 Platelet Morphology NORMAL (NORMAL) 05/31/16 05:38 RBC Morph Micro Appear NORMAL (NORMAL) 05/31/16 05:38 Specimen Source Arterial 05/31/16 09:35 Sample Site RB 05/31/16 09:35 pH 7.32 (7.35-7.45) L 05/31/16 09:35 pCO2 23.0 mmHg (35.0-45.0) L* 05/31/16 09:35 pO2 94.0 mmHg (80.0-100.0) 05/31/16 09:35 HCO3 11.9 mmol/L (20.0-26.0) L 05/31/16 09:35 Base Excess -12.3 mmol/L (-3.0-3.0) L 05/31/16 09:35 O2 Saturation 97.0 % (92.0-100.0) 05/31/16 09:35 Derrick Test NA 05/31/16 09:35 Vent Rate NA 05/31/16 09:35 Inspired O2 21 05/31/16 09:35 Tidal Volume NA 05/31/16 09:35 PEEP NA 05/31/16 09:35 Pressure (ins/psv/peep) NA 05/31/16 09:35 Critical Value E.WOOD 05/31/16 09:35 Sodium 132 mEq/L (136-145) L 06/02/16 05:13 Potassium 3.0 mEq/L (3.5-5.1) L 06/02/16 05:13 Chloride 100 mEq/L (98-107) 06/02/16 05:13 Carbon Dioxide 19.1 mEq/L (21.0-31.0) L 06/02/16 05:13 Anion Gap 15.9 (7.0-16.0) 06/02/16 05:13 BUN 7 mg/dL (7-25) 06/02/16 05:13 Creatinine 0.6 mg/dL (0.7-1.3) L 06/02/16 05:13 Est GFR ( Amer) > 60.0 ml/min 06/02/16 05:13 Est GFR (Non-Af Amer) > 60.0 ml/min 06/02/16 05:13 BUN/Creatinine Ratio 11.7 06/02/16 05:13 Glucose 279 mg/dL (70-105) H 06/02/16 05:13 POC Glucose 379 MG/DL (70 - 105) H 06/02/16 11:58 Hemoglobin A1c % 14.0 % (4.0-6.0) H 05/29/16 21:03 Calcium 8.5 mg/dL (8.6-10.3) L 06/02/16 05:13 Phosphorus 1.3 mg/dL (2.5-5.0) L 05/31/16 05:38 Magnesium 1.9 mg/dL (1.9-2.7) 05/31/16 05:38 Total Bilirubin 0.5 mg/dL (0.3-1.0) 05/30/16 06:45 AST 12 U/L (13-39) L 05/30/16 06:45 ALT 18 U/L (7-52) 05/30/16 06:45 Alkaline Phosphatase 82 U/L (34-104) 05/30/16 06:45 Total Protein 6.9 gm/dL (6.0-8.3) 05/30/16 06:45 Albumin 3.6 gm/dL (4.2-5.5) L 05/30/16 06:45 Globulin 3.3 gm/dL 05/30/16 06:45 Albumin/Globulin Ratio 1.1 (1.0-1.8) 05/30/16 06:45 Triglycerides 94 mg/dL (<150) 05/30/16 06:45 Cholesterol 161 mg/dL (<200) 05/30/16 06:45 LDL Cholesterol Direct 103 mg/dL (75-193) 05/30/16 06:45 HDL Cholesterol 51 mg/dL (23-92) 05/30/16 06:45 Vitamin B12 1247 pg/mL (211-946) H 05/30/16 06:45 Folic Acid 11.8 ng/mL (>3.0) 05/30/16 06:45 TSH 0.41 uIU/ml (0.34-5.60) 05/30/16 06:45 Urine Source CLEAN C 06/01/16 08:50 Urine Color YELLOW 06/01/16 08:50 Urine Clarity SL. CLOUDY (CLEAR) 06/01/16 08:50 Urine pH 6.0 06/01/16 08:50 Ur Specific [place] 1.020 (1.005-1.030) 06/01/16 08:50 Urine Protein 30 mg/dL (NEGATIVE) H 06/01/16 08:50 Urine Glucose (UA) 500 mg/dL (NEGATIVE) H 06/01/16 08:50 Urine Clinitest 1000 mg/dL (NEGATIVE) 06/01/16 08:50 Urine Ketones >=80 mg/dL (NEGATIVE) H 06/01/16 08:50 Urine Blood NEGATIVE (NEGATIVE) 06/01/16 08:50 Urine Nitrate NEGATIVE (NEGATIVE) 06/01/16 08:50 Urine Bilirubin SMALL (NEGATIVE) H 06/01/16 08:50 Urine Urobilinogen 1.0 E.U./dL (0.2 - 1.0) 06/01/16 08:50 Ur Leukocyte Esterase NEGATIVE (NEGATIVE) 06/01/16 08:50 Urine RBC NONE SEEN /hpf (0-5) 06/01/16 08:50 Urine WBC 0-2 /hpf (0-5) 06/01/16 08:50 Ur Epithelial Cells RARE /lpf (FEW) 06/01/16 08:50 Urine Bacteria NONE SEEN /hpf (NONE SEEN) 06/01/16 08:50 - Physical Exam Vitals and I&O: Vital Signs Temp 99.2 F 06/02/16 11:50 Pulse 80 06/02/16 11:50 Resp 18 06/02/16 12:00 BP 108/61 06/02/16 11:50 Pulse Ox 96 06/02/16 11:50 Intake & Output 06/01/16 06/02/16 06/02/16 18:59 06:59 18:59 Intake Total 100 3000 Output Total 1550 Balance 100 1450 Intake: Intake, IV Amount 100 1450 Piperacillin Sodium/ 100 200 Tazobact 4.5 gm In Sodium Chloride 0.9% 100 ml @ 100 mls/hr IV Q8HR [facility] Rx #:[id number] Sodium Chloride 0.9% 1, 1000 000 ml @ 125 mls/hr IV . Q8H [facility] Rx#:[id number] Vancomycin HCl 1.25 gm In 250 Sodium Chloride 0.9% 250 ml @ 165 mls/hr IV Q12H [facility] Rx#:[id number] Oral 1550 Output: Urine 1550 Active Medications: Current Medications Acetaminophen (Tylenol) 650 mg PO Q6H PRN PRN Reason: Mild Pain/Headache/T above 101 Stop: 07/28/16 20:37 Last Admin: 06/01/16 04:16 Dose: 650 mg Al Hydrox/Mg Hydrox/Simethicone (Maalox) 30 ml PO Q6H PRN PRN Reason: GI DISTRESS Stop: 07/28/16 20:37 Last Admin: 05/29/16 23:20 Dose: 30 ml Albuterol/Ipratropium (Duoneb Neb) 3 ml HHN Q4H PRN PRN Reason: Wheezing Stop: 07/28/16 20:37 Last Admin: 05/29/16 21:35 Dose: 3 ml Clonidine HCl (Catapres) 0.1 mg PO Q6HR PRN PRN Reason: SBP GREATER THAN 160 Stop: 07/28/16 20:47 Glipizide (Glucotrol) 10 mg PO BID [facility] Stop: 07/30/16 15:44 Last Admin: 06/02/16 09:05 Dose: 10 mg Guaifenesin (Robitussin) 200 mg PO Q4HR PRN PRN Reason: Cough or Congestion Stop: 07/28/16 20:47 Heparin Sodium (Porcine) (Heparin) 5,000 units SUBQ Q12HR [facility] Stop: 07/28/16 20:59 Last Admin: 06/02/16 09:05 Dose: 5,000 units Sodium Chloride (Nacl 0.9%) 1,000 mls @ 125 mls/hr IV .Q8H [facility] Stop: 07/28/16 20:47 Last Admin: 06/02/16 09:06 Dose: 125 mls/hr Piperacillin Sod/Tazobactam (Sod 4.5 gm/ Sodium Chloride) 100 mls @ 100 mls/hr IV Q8HR [facility] Stop: 07/30/16 20:59 Last Admin: 06/02/16 13:38 Dose: 100 mls/hr Vancomycin HCl 1.25 gm/ Sodium (Chloride) 250 mls @ 165 mls/hr IV Q12H [facility] Stop: 07/31/16 17:59 Last Admin: 06/02/16 06:02 Dose: 165 mls/hr Insulin Aspart (Novolog Insulin Sliding Scale) 0 units SUBQ ACHS [facility] PRN Reason: Protocol Stop: 07/29/16 20:59 Last Admin: 06/02/16 12:00 Dose: 12 units Ipratropium [place] (Atrovent Neb 0.5mg/2.5ml) 0.5 mg HHN Q6H PRN PRN Reason: Shortness of Breath Stop: 07/28/16 20:37 Magnesium Hydroxide (Milk Of Magnesia) 30 ml PO HS PRN PRN Reason: Constipation Stop: 07/28/16 20:37 Meclizine HCl (Antivert) 25 mg PO DAILY PRN PRN Reason: Nausea / Vomiting Stop: 07/28/16 20:47 Metformin HCl (Glucophage) 850 mg PO BIDWM [facility] Stop: 07/29/16 07:59 Last Admin: 06/02/16 09:05 Dose: 850 mg Miscellaneous (Vancomycin Iv Per Pharmacy) 1 ea [facility] PRN PRN PRN Reason: PROTOCOL Stop: 07/31/16 14:47 Mupirocin (Bactroban Oint) 1 appl NS BID [facility] Stop: 06/05/16 09:01 Last Admin: 06/02/16 09:05 Dose: 1 appl Ondansetron HCl (Zofran) 4 mg IVP Q6H PRN PRN Reason: Nausea / Vomiting Stop: 07/28/16 20:37 Last Admin: 05/30/16 12:42 Dose: 4 mg Sodium Bicarbonate (Sodium Bicarbonate) 650 mg PO BID [facility] PRN Reason: Protocol Stop: 07/31/16 16:59 Last Admin: 06/02/16 09:05 Dose: 650 mg Zolpidem Tartrate (Ambien) 5 mg PO HS PRN PRN Reason: Insomnia Stop: 07/28/16 20:37 General: alert HEENT: NC/AT Neck: Supple Lungs: CTAB Cardiovascular: RRR, Normal S1, Normal S2, without murmur Abdomen: soft non-tender Internal Medicine Assmt/Plan - Assessment Assessment: RIGHT LL PNA MRSA SPUTUM Diabetes out of control-improving dehydration dka - Plan Plan: continue ivabx SUPPLEMENTAL O2 NEEDED BRONCHODILATORS
--- NOTE | 2016-06-02 20:31 | Cardiology ---
The patient of Dr. Lozano M-MODE ECHOCARDIOGRAM: MITRAL VALVE: Anterior leaflet of mitral valve shows normal excursion, EF velocity. Posterior leaflets of mitral valve shows normal excursion. Left ventricular posterior wall shows increased thickness, decreased excursion. Interventricular septum shows increased thickness, decreased excursion, ejection fraction 45%. Left atrium normal. Aortic root showed normal dimension, normal excursion of aortic leaflets. CONCLUSION: Hypertrophy of the left ventricle, ejection fraction 45%. 2D ECHO: Long axis view shows enlarged left ventricular cavity with hypertrophy of the left ventricle, ejection fraction 45%. Left atrium normal. Aortic root shows normal dimension, normal excursion of aortic leaflets. Short axis view of mitral valve normal. Short axis aortic valve normal. Apical 4-chamber view showed enlarged left ventricular cavity with decreased ejection fraction. Left atrium, normal. Right ventricular cavity enlarged and right atrium enlargement. CONCLUSION: Right atrial enlargement, right ventricular enlargement, hypertrophy of the left ventricle, ejection fraction 45%. Doppler study shows mild mitral regurgitation, mild tricuspid regurgitation, moderate pleural effusion. JOB# [id number]
[2016-06-03 05:34] LABS: % EOSINOPHILS 1.4 % (0.0-5.0); % LYMPHOCYTES 13.7 % (20.0-50.0); % MONOCYTES 12.7 % (2.0-10.0); % NEUTROPHILS 69.2 % (40.0-80.0); HEMATOCRIT 36.9 % (39.0-49.0); HEMOGLOBIN 12.8 gm/dL (13.2-17.3); MEAN CELL VOLUME 89.5 fl (80-99); MEAN CORPUSCULAR HGB CONC 34.7 pg (28.0-36.0); MEAN PLATELET VOLUME 7.4 fl; NEUTROPHILE ABSOLUTE 6.2 Th/cmm (1.8-8.0); PLATELET COUNT 312 Th/cmm (150-400); RED BLOOD COUNT 4.13 Mil/cmm (4.30-5.70); RED CELL DISTRIBUTION WIDTH 11.3 % (11.5-20.0); WHITE BLOOD COUNT 8.9 Th/cmm (4.8-10.8)
[2016-06-03 05:53] LABS: ANION GAP 13.3 (7.0-16.0); BUN - UREA NITROGEN 9 mg/dL (7-25); CALCIUM SERUM 8.7 mg/dL (8.6-10.3); CARBON DIOXIDE 22.9 mEq/L (21.0-31.0); CHLORIDE 100 mEq/L (98-107); CREATININE - SERUM 0.5 mg/dL (0.7-1.3); GLUCOSE 268 mg/dL (70-105); POTASSIUM SERUM 3.2 mEq/L (3.5-5.1); SODIUM SERUM 133 mEq/L (136-145)
[2016-06-03] MEDS: Sodium Chloride 0.9% 1,000 ML IV SCH (06:27)
[2016-06-03] MEDS: INSULIN ASPART SLIDING SCALE 100 UNITS/ML UNIT SUBQ SCH ×4 (06:38→21:19)
[2016-06-03] MEDS: Albuterol/Ipratropium Neb 3 ML AERS HHN PRN ×2 (07:29→19:29)
[2016-06-03] MEDS ORDERED: Potassium Chloride 20 mEq ER Tab PO ONE (11:31)
--- NOTE | 2016-06-03 11:49 | Internal Medicine Prog Note ---
Internal Medicine Subjective - Subjective Service Date: 06/03/16 (patient awake, alert, anxious to go home, explained to patient importance of receiving IVabx patient understood and verbalized. dneies any sob ) Patient seen and examined:: with staff Internal Medicine Objective - Results Result Diagrams: 06/03/16 05:00 06/03/16 05:00 Recent Labs: Laboratory Last Values WBC 8.9 Th/cmm (4.8-10.8) 06/03/16 05:00 RBC 4.13 Mil/cmm (4.30-5.70) L 06/03/16 05:00 Hgb 12.8 gm/dL (13.2-17.3) L 06/03/16 05:00 Hct 36.9 % (39.0-49.0) L 06/03/16 05:00 MCV 89.5 fl (80-99) 06/03/16 05:00 MCH 31.0 pg (26.0-30.0) H 06/03/16 05:00 MCHC Differential 34.7 pg (28.0-36.0) 06/03/16 05:00 RDW 11.3 % (11.5-20.0) L 06/03/16 05:00 Plt Count 312 Th/cmm (150-400) 06/03/16 05:00 MPV 7.4 fl 06/03/16 05:00 Neutrophils % 69.2 % (40.0-80.0) 06/03/16 05:00 Band Neutrophils % 8 % (0-10) 05/31/16 05:38 Lymphocytes % 13.7 % (20.0-50.0) L 06/03/16 05:00 Monocytes % 12.7 % (2.0-10.0) H 06/03/16 05:00 Eosinophils % 1.4 % (0.0-5.0) 06/03/16 05:00 Basophils % 3.0 % (0.0-2.0) H 06/03/16 05:00 Neutrophils (Manual) 76 % (40-80) 05/31/16 05:38 Lymphocytes 6 % (20-50) L 05/31/16 05:38 Monocytes 9 % (2-10) 05/31/16 05:38 Eosinophils 1 % (0-5) 05/31/16 05:38 Platelet Estimate ADEQUATE (NORMAL) 05/31/16 05:38 Platelet Morphology NORMAL (NORMAL) 05/31/16 05:38 RBC Morph Micro Appear NORMAL (NORMAL) 05/31/16 05:38 Specimen Source Arterial 05/31/16 09:35 Sample Site RB 05/31/16 09:35 pH 7.32 (7.35-7.45) L 05/31/16 09:35 pCO2 23.0 mmHg (35.0-45.0) L* 05/31/16 09:35 pO2 94.0 mmHg (80.0-100.0) 05/31/16 09:35 HCO3 11.9 mmol/L (20.0-26.0) L 05/31/16 09:35 Base Excess -12.3 mmol/L (-3.0-3.0) L 05/31/16 09:35 O2 Saturation 97.0 % (92.0-100.0) 05/31/16 09:35 Derrick Test NA 05/31/16 09:35 Vent Rate NA 05/31/16 09:35 Inspired O2 21 05/31/16 09:35 Tidal Volume NA 05/31/16 09:35 PEEP NA 05/31/16 09:35 Pressure (ins/psv/peep) NA 05/31/16 09:35 Critical Value E.WOOD 05/31/16 09:35 Sodium 133 mEq/L (136-145) L 06/03/16 05:00 Potassium 3.2 mEq/L (3.5-5.1) L 06/03/16 05:00 Chloride 100 mEq/L (98-107) 06/03/16 05:00 Carbon Dioxide 22.9 mEq/L (21.0-31.0) 06/03/16 05:00 Anion Gap 13.3 (7.0-16.0) 06/03/16 05:00 BUN 9 mg/dL (7-25) 06/03/16 05:00 Creatinine 0.5 mg/dL (0.7-1.3) L 06/03/16 05:00 Est GFR ( Amer) > 60.0 ml/min 06/03/16 05:00 Est GFR (Non-Af Amer) > 60.0 ml/min 06/03/16 05:00 BUN/Creatinine Ratio 18.0 06/03/16 05:00 Glucose 268 mg/dL (70-105) H 06/03/16 05:00 POC Glucose 308 MG/DL (70 - 105) H 06/03/16 11:33 Hemoglobin A1c % 14.0 % (4.0-6.0) H 05/29/16 21:03 Calcium 8.7 mg/dL (8.6-10.3) 06/03/16 05:00 Phosphorus 1.3 mg/dL (2.5-5.0) L 05/31/16 05:38 Magnesium 1.9 mg/dL (1.9-2.7) 05/31/16 05:38 Total Bilirubin 0.5 mg/dL (0.3-1.0) 05/30/16 06:45 AST 12 U/L (13-39) L 05/30/16 06:45 ALT 18 U/L (7-52) 05/30/16 06:45 Alkaline Phosphatase 82 U/L (34-104) 05/30/16 06:45 Total Protein 6.9 gm/dL (6.0-8.3) 05/30/16 06:45 Albumin 3.6 gm/dL (4.2-5.5) L 05/30/16 06:45 Globulin 3.3 gm/dL 05/30/16 06:45 Albumin/Globulin Ratio 1.1 (1.0-1.8) 05/30/16 06:45 Triglycerides 94 mg/dL (<150) 05/30/16 06:45 Cholesterol 161 mg/dL (<200) 05/30/16 06:45 LDL Cholesterol Direct 103 mg/dL (75-193) 05/30/16 06:45 HDL Cholesterol 51 mg/dL (23-92) 05/30/16 06:45 Vitamin B12 1247 pg/mL (211-946) H 05/30/16 06:45 Folic Acid 11.8 ng/mL (>3.0) 05/30/16 06:45 TSH 0.41 uIU/ml (0.34-5.60) 05/30/16 06:45 Urine Source CLEAN C 06/01/16 08:50 Urine Color YELLOW 06/01/16 08:50 Urine Clarity SL. CLOUDY (CLEAR) 06/01/16 08:50 Urine pH 6.0 06/01/16 08:50 Ur Specific [place] 1.020 (1.005-1.030) 06/01/16 08:50 Urine Protein 30 mg/dL (NEGATIVE) H 06/01/16 08:50 Urine Glucose (UA) 500 mg/dL (NEGATIVE) H 06/01/16 08:50 Urine Clinitest 1000 mg/dL (NEGATIVE) 06/01/16 08:50 Urine Ketones >=80 mg/dL (NEGATIVE) H 06/01/16 08:50 Urine Blood NEGATIVE (NEGATIVE) 06/01/16 08:50 Urine Nitrate NEGATIVE (NEGATIVE) 06/01/16 08:50 Urine Bilirubin SMALL (NEGATIVE) H 06/01/16 08:50 Urine Urobilinogen 1.0 E.U./dL (0.2 - 1.0) 06/01/16 08:50 Ur Leukocyte Esterase NEGATIVE (NEGATIVE) 06/01/16 08:50 Urine RBC NONE SEEN /hpf (0-5) 06/01/16 08:50 Urine WBC 0-2 /hpf (0-5) 06/01/16 08:50 Ur Epithelial Cells RARE /lpf (FEW) 06/01/16 08:50 Urine Bacteria NONE SEEN /hpf (NONE SEEN) 06/01/16 08:50 Vancomycin Trough 2.8 ug/mL (10-20) L 06/03/16 05:00 - Physical Exam Vitals and I&O: Vital Signs Temp 99.0 F 06/03/16 11:34 Pulse 91 06/03/16 11:34 Resp 18 06/03/16 11:34 BP 113/75 06/03/16 11:34 Pulse Ox 98 06/03/16 11:34 Intake & Output 06/02/16 06/03/16 06/03/16 18:59 06:59 18:59 Intake Total 3150 1450 Output Total 1600 Balance 1550 1450 Intake: Intake, IV Amount 1350 1450 Piperacillin Sodium/ 100 200 Tazobact 4.5 gm In Sodium Chloride 0.9% 100 ml @ 100 mls/hr IV Q8HR [facility] Rx #:[id number] Sodium Chloride 0.9% 1, 1000 1000 000 ml @ 125 mls/hr IV . Q8H [facility] Rx#:[id number] Vancomycin HCl 1.25 gm In 250 250 Sodium Chloride 0.9% 250 ml @ 165 mls/hr IV Q12H [facility] Rx#:[id number] Oral 1800 Output: Urine 1600 Other: # Voids 7 # Bowel Movements 0 Active Medications: Current Medications Acetaminophen (Tylenol) 650 mg PO Q6H PRN PRN Reason: Mild Pain/Headache/T above 101 Stop: 07/28/16 20:37 Last Admin: 06/01/16 04:16 Dose: 650 mg Al Hydrox/Mg Hydrox/Simethicone (Maalox) 30 ml PO Q6H PRN PRN Reason: GI DISTRESS Stop: 07/28/16 20:37 Last Admin: 05/29/16 23:20 Dose: 30 ml Albuterol/Ipratropium (Duoneb Neb) 3 ml HHN Q4H PRN PRN Reason: Wheezing Stop: 07/28/16 20:37 Last Admin: 06/03/16 07:29 Dose: 3 ml Clonidine HCl (Catapres) 0.1 mg PO Q6HR PRN PRN Reason: SBP GREATER THAN 160 Stop: 07/28/16 20:47 Glipizide (Glucotrol) 10 mg PO TID [facility] Stop: 08/02/16 13:59 Guaifenesin (Robitussin) 200 mg PO Q4HR PRN PRN Reason: Cough or Congestion Stop: 07/28/16 20:47 Heparin Sodium (Porcine) (Heparin) 5,000 units SUBQ Q12HR [facility] Stop: 07/28/16 20:59 Last Admin: 06/03/16 08:58 Dose: 5,000 units Sodium Chloride (Nacl 0.9%) 1,000 mls @ 125 mls/hr IV .Q8H [facility] Stop: 07/28/16 20:47 Last Admin: 06/03/16 06:27 Dose: 125 mls/hr Piperacillin Sod/Tazobactam (Sod 4.5 gm/ Sodium Chloride) 100 mls @ 100 mls/hr IV Q8HR [facility] Stop: 07/30/16 20:59 Last Infusion: 06/03/16 05:45 Dose: Infused Vancomycin HCl 1 gm/ Sodium (Chloride) 250 mls @ 165 mls/hr IV Q8H [facility] Stop: 08/02/16 11:59 Insulin Aspart (Novolog Insulin Sliding Scale) 0 units SUBQ ACHS [facility] PRN Reason: Protocol Stop: 07/29/16 20:59 Last Admin: 06/03/16 06:38 Dose: 6 units Ipratropium [place] (Atrovent Neb 0.5mg/2.5ml) 0.5 mg HHN Q6H PRN PRN Reason: Shortness of Breath Stop: 07/28/16 20:37 Magnesium Hydroxide (Milk Of Magnesia) 30 ml PO HS PRN PRN Reason: Constipation Stop: 07/28/16 20:37 Meclizine HCl (Antivert) 25 mg PO DAILY PRN PRN Reason: Nausea / Vomiting Stop: 07/28/16 20:47 Metformin HCl (Glucophage) 850 mg PO BIDWM [facility] Stop: 07/29/16 07:59 Last Admin: 06/03/16 08:58 Dose: 850 mg Miscellaneous (Vancomycin Iv Per Pharmacy) 1 ea [facility] PRN PRN PRN Reason: PROTOCOL Stop: 07/31/16 14:47 Mupirocin (Bactroban Oint) 1 appl NS BID [facility] Stop: 06/05/16 09:01 Last Admin: 06/03/16 08:59 Dose: 1 appl Ondansetron HCl (Zofran) 4 mg IVP Q6H PRN PRN Reason: Nausea / Vomiting Stop: 07/28/16 20:37 Last Admin: 05/30/16 12:42 Dose: 4 mg Potassium Chloride (Klor-Con) 40 meq PO X1 ONE Stop: 06/03/16 11:32 Sodium Bicarbonate (Sodium Bicarbonate) 650 mg PO BID [facility] PRN Reason: Protocol Stop: 07/31/16 16:59 Last Admin: 06/03/16 08:58 Dose: 650 mg Zolpidem Tartrate (Ambien) 5 mg PO HS PRN PRN Reason: Insomnia Stop: 07/28/16 20:37 General: alert HEENT: NC/AT, PERRLA Neck: Supple Lungs: CTAB Cardiovascular: RRR, Normal S1, Normal S2, without murmur Abdomen: soft non-tender Extremities: clear Neurological: no change Internal Medicine Assmt/Plan - Assessment Assessment: RIGHT LL PNA MRSA SPUTUM Diabetes out of control dehydration dka - Plan Plan: continue ivabx educated patient importance of monitoring his glucose and to be complaint with his diabetes, explained patient the risks if not it is not taken care of. SUPPLEMENTAL O2 NEEDED BRONCHODILATORS
[2016-06-04] MEDS: Sodium Chloride 0.9% 1,000 ML IV SCH ×3 (04:01→15:01)
[2016-06-04] MEDS: INSULIN ASPART SLIDING SCALE 100 UNITS/ML UNIT SUBQ SCH ×4 (06:37→22:19)
[2016-06-04 06:44] LABS: HEMATOCRIT 36.3 % (39.0-49.0); HEMOGLOBIN 12.7 gm/dL (13.2-17.3); MEAN CELL VOLUME 89.7 fl (80-99); MEAN CORPUSCULAR HEMOGLOBIN 31.4 pg (26.0-30.0); MEAN PLATELET VOLUME 7.3 fl; PLATELET COUNT 340 Th/cmm (150-400); RED BLOOD COUNT 4.05 Mil/cmm (4.30-5.70); RED CELL DISTRIBUTION WIDTH 11.1 % (11.5-20.0); WHITE BLOOD COUNT 7.7 Th/cmm (4.8-10.8)
[2016-06-04 06:58] LABS: ALB/GLOB RATIO 0.7 (1.0-1.8); ALKALINE PHOSPHATASE 82 U/L (34-104); ANION GAP 12.2 (7.0-16.0); BILIRUBIN,TOTAL 0.4 mg/dL (0.3-1.0); BUN - UREA NITROGEN 9 mg/dL (7-25); CALCIUM SERUM 8.7 mg/dL (8.6-10.3); CARBON DIOXIDE 26.3 mEq/L (21.0-31.0); CHLORIDE 97 mEq/L (98-107); CREATININE - SERUM 0.5 mg/dL (0.7-1.3); GLUCOSE 307 mg/dL (70-105); MAGNESIUM 1.8 mg/dL (1.9-2.7); PHOSPHOROUS 2.9 mg/dL (2.5-5.0); POTASSIUM SERUM 3.5 mEq/L (3.5-5.1); SGOT 8 U/L (13-39); SGPT/ALT 6 U/L (7-52); SODIUM SERUM 132 mEq/L (136-145)
[2016-06-04 07:37] LABS: BAND NEUTROPHILE 6 % (0-10); BASOPHIL 2 % (0-3); EOSINOPHIL 3 % (0-5); NEUTROPHILS 55 % (40-80); TOTAL CELLS COUNTED 100
[2016-06-04 07:38] LABS: PLATELET ESTIMATE ADEQUATE (NORMAL); PLATELET MORPHOLOGY GIANT PLATELETS SEEN (NORMAL)
[2016-06-04] MEDS: Albuterol/Ipratropium Neb 3 ML AERS HHN PRN ×2 (11:18→19:43)
[2016-06-04] MEDS ORDERED: Mag Sulfate 2gm/50mL Premix 2 GM/50 ML BAG IV ONE (14:07)
[2016-06-04] MEDS ORDERED: Sodium Chloride 0.9% 1,000 ML IV SCH (14:15)
--- NOTE | 2016-06-04 14:57 | Internal Medicine Prog Note ---
Internal Medicine Subjective - Subjective Service Date: 06/04/16 Patient seen and examined:: with staff Patient is:: awake Per staff patient is:: no adverse event Internal Medicine Objective - Results Result Diagrams: 06/04/16 06:26 06/04/16 06:26 Recent Labs: Laboratory Last Values WBC 7.7 Th/cmm (4.8-10.8) 06/04/16 06:26 RBC 4.05 Mil/cmm (4.30-5.70) L 06/04/16 06:26 Hgb 12.7 gm/dL (13.2-17.3) L 06/04/16 06:26 Hct 36.3 % (39.0-49.0) L 06/04/16 06:26 MCV 89.7 fl (80-99) 06/04/16 06:26 MCH 31.4 pg (26.0-30.0) H 06/04/16 06:26 MCHC Differential 35.0 pg (28.0-36.0) 06/04/16 06:26 RDW 11.1 % (11.5-20.0) L 06/04/16 06:26 Plt Count 340 Th/cmm (150-400) 06/04/16 06:26 MPV 7.3 fl 06/04/16 06:26 Neutrophils % 69.2 % (40.0-80.0) 06/03/16 05:00 Band Neutrophils % 6 % (0-10) 06/04/16 06:26 Lymphocytes % 13.7 % (20.0-50.0) L 06/03/16 05:00 Monocytes % 12.7 % (2.0-10.0) H 06/03/16 05:00 Eosinophils % 1.4 % (0.0-5.0) 06/03/16 05:00 Basophils % 3.0 % (0.0-2.0) H 06/03/16 05:00 Neutrophils (Manual) 55 % (40-80) 06/04/16 06:26 Lymphocytes 19 % (20-50) L 06/04/16 06:26 Monocytes 15 % (2-10) H 06/04/16 06:26 Eosinophils 3 % (0-5) 06/04/16 06:26 Basophils 2 % (0-3) 06/04/16 06:26 Platelet Estimate ADEQUATE (NORMAL) 06/04/16 06:26 Platelet Morphology GIANT PLATELETS SEEN (NORMAL) 06/04/16 06:26 RBC Morph Micro Appear NORMAL (NORMAL) 06/04/16 06:26 Specimen Source Arterial 05/31/16 09:35 Sample Site RB 05/31/16 09:35 pH 7.32 (7.35-7.45) L 05/31/16 09:35 pCO2 23.0 mmHg (35.0-45.0) L* 05/31/16 09:35 pO2 94.0 mmHg (80.0-100.0) 05/31/16 09:35 HCO3 11.9 mmol/L (20.0-26.0) L 05/31/16 09:35 Base Excess -12.3 mmol/L (-3.0-3.0) L 05/31/16 09:35 O2 Saturation 97.0 % (92.0-100.0) 05/31/16 09:35 Derrick Test NA 05/31/16 09:35 Vent Rate NA 05/31/16 09:35 Inspired O2 21 05/31/16 09:35 Tidal Volume NA 05/31/16 09:35 PEEP NA 05/31/16 09:35 Pressure (ins/psv/peep) NA 05/31/16 09:35 Critical Value E.WOOD 05/31/16 09:35 Sodium 132 mEq/L (136-145) L 06/04/16 06:26 Potassium 3.5 mEq/L (3.5-5.1) 06/04/16 06:26 Chloride 97 mEq/L (98-107) L 06/04/16 06:26 Carbon Dioxide 26.3 mEq/L (21.0-31.0) 06/04/16 06:26 Anion Gap 12.2 (7.0-16.0) 06/04/16 06:26 BUN 9 mg/dL (7-25) 06/04/16 06:26 Creatinine 0.5 mg/dL (0.7-1.3) L 06/04/16 06:26 Est GFR ( Amer) > 60.0 ml/min 06/04/16 06:26 Est GFR (Non-Af Amer) > 60.0 ml/min 06/04/16 06:26 BUN/Creatinine Ratio 18.0 06/04/16 06:26 Glucose 307 mg/dL (70-105) H 06/04/16 06:26 POC Glucose 399 MG/DL (70 - 105) H 06/04/16 11:56 Hemoglobin A1c % 14.0 % (4.0-6.0) H 05/29/16 21:03 Calcium 8.7 mg/dL (8.6-10.3) 06/04/16 06:26 Phosphorus 2.9 mg/dL (2.5-5.0) 06/04/16 06:26 Magnesium 1.8 mg/dL (1.9-2.7) L 06/04/16 06:26 Total Bilirubin 0.4 mg/dL (0.3-1.0) 06/04/16 06:26 AST 8 U/L (13-39) L 06/04/16 06:26 ALT 6 U/L (7-52) L 06/04/16 06:26 Alkaline Phosphatase 82 U/L (34-104) 06/04/16 06:26 Total Protein 6.8 gm/dL (6.0-8.3) 06/04/16 06:26 Albumin 2.9 gm/dL (4.2-5.5) L 06/04/16 06:26 Globulin 3.9 gm/dL 06/04/16 06:26 Albumin/Globulin Ratio 0.7 (1.0-1.8) L 06/04/16 06:26 Triglycerides 94 mg/dL (<150) 05/30/16 06:45 Cholesterol 161 mg/dL (<200) 05/30/16 06:45 LDL Cholesterol Direct 103 mg/dL (75-193) 05/30/16 06:45 HDL Cholesterol 51 mg/dL (23-92) 05/30/16 06:45 Vitamin B12 1247 pg/mL (211-946) H 05/30/16 06:45 Folic Acid 11.8 ng/mL (>3.0) 05/30/16 06:45 TSH 0.41 uIU/ml (0.34-5.60) 05/30/16 06:45 Urine Source CLEAN C 06/01/16 08:50 Urine Color YELLOW 06/01/16 08:50 Urine Clarity SL. CLOUDY (CLEAR) 06/01/16 08:50 Urine pH 6.0 06/01/16 08:50 Ur Specific [place] 1.020 (1.005-1.030) 06/01/16 08:50 Urine Protein 30 mg/dL (NEGATIVE) H 06/01/16 08:50 Urine Glucose (UA) 500 mg/dL (NEGATIVE) H 06/01/16 08:50 Urine Clinitest 1000 mg/dL (NEGATIVE) 06/01/16 08:50 Urine Ketones >=80 mg/dL (NEGATIVE) H 06/01/16 08:50 Urine Blood NEGATIVE (NEGATIVE) 06/01/16 08:50 Urine Nitrate NEGATIVE (NEGATIVE) 06/01/16 08:50 Urine Bilirubin SMALL (NEGATIVE) H 06/01/16 08:50 Urine Urobilinogen 1.0 E.U./dL (0.2 - 1.0) 06/01/16 08:50 Ur Leukocyte Esterase NEGATIVE (NEGATIVE) 06/01/16 08:50 Urine RBC NONE SEEN /hpf (0-5) 06/01/16 08:50 Urine WBC 0-2 /hpf (0-5) 06/01/16 08:50 Ur Epithelial Cells RARE /lpf (FEW) 06/01/16 08:50 Urine Bacteria NONE SEEN /hpf (NONE SEEN) 06/01/16 08:50 Vancomycin Trough 4.8 ug/mL (10-20) L 06/04/16 12:06 - Physical Exam Vitals and I&O: Vital Signs Temp 98.7 F 06/04/16 12:00 Pulse 99 06/04/16 12:00 Resp 19 06/04/16 12:00 BP 116/65 06/04/16 12:00 Pulse Ox 97 06/04/16 12:00 Intake & Output 06/03/16 06/04/16 06/04/16 18:59 06:59 18:59 Intake Total 1350 1194.75 1000 Balance 1350 1194.75 1000 Intake: Intake, IV Amount 1350 694.75 1000 Piperacillin Sodium/ 100 200 Tazobact 4.5 gm In Sodium Chloride 0.9% 100 ml @ 100 mls/hr IV Q8HR [facility] Rx #:[id number] Sodium Chloride 0.9% 1, 1000 1000 000 ml @ 125 mls/hr IV . Q8H [facility] Rx#:[id number] Vancomycin HCl 1 gm In 250 494.75 Sodium Chloride 0.9% 250 ml @ 165 mls/hr IV Q8H [facility] Rx#:[id number] Oral 500 Other: # Voids 3 4 # Bowel Movements 1 Stool Characteristics Soft Formed Active Medications: Current Medications Acetaminophen (Tylenol) 650 mg PO Q6H PRN PRN Reason: Mild Pain/Headache/T above 101 Stop: 07/28/16 20:37 Last Admin: 06/01/16 04:16 Dose: 650 mg Al Hydrox/Mg Hydrox/Simethicone (Maalox) 30 ml PO Q6H PRN PRN Reason: GI DISTRESS Stop: 07/28/16 20:37 Last Admin: 05/29/16 23:20 Dose: 30 ml Albuterol/Ipratropium (Duoneb Neb) 3 ml HHN Q4H PRN PRN Reason: Wheezing Stop: 07/28/16 20:37 Last Admin: 06/04/16 11:18 Dose: 3 ml Clonidine HCl (Catapres) 0.1 mg PO Q6HR PRN PRN Reason: SBP GREATER THAN 160 Stop: 07/28/16 20:47 Glipizide (Glucotrol) 10 mg PO TID [facility] Stop: 08/02/16 13:59 Last Admin: 06/04/16 13:01 Dose: 10 mg Guaifenesin (Robitussin) 200 mg PO Q4HR PRN PRN Reason: Cough or Congestion Stop: 07/28/16 20:47 Heparin Sodium (Porcine) (Heparin) 5,000 units SUBQ Q12HR [facility] Stop: 07/28/16 20:59 Last Admin: 06/04/16 09:49 Dose: 5,000 units Piperacillin Sod/Tazobactam (Sod 4.5 gm/ Sodium Chloride) 100 mls @ 100 mls/hr IV Q8HR [facility] Stop: 07/30/16 20:59 Last Admin: 06/04/16 12:57 Dose: 100 mls/hr Vancomycin HCl 1.25 gm/ Sodium (Chloride) 250 mls @ 165 mls/hr IV Q8H [facility] Stop: 08/03/16 12:59 Magnesium Sulfate (Magnesium Sulfate Premix) 2 gm in 50 mls @ 25 mls/hr IV X1 ONE Stop: 06/04/16 16:06 Sodium Chloride (Nacl 0.9%) 1,000 mls @ 80 mls/hr IV .[id number] [facility] Stop: 08/03/16 14:08 Insulin Aspart (Novolog Insulin Sliding Scale) 0 units SUBQ ACHS [facility] PRN Reason: Protocol Stop: 07/29/16 20:59 Last Admin: 06/04/16 12:06 Dose: 15 units Ipratropium [place] (Atrovent Neb 0.5mg/2.5ml) 0.5 mg HHN Q6H PRN PRN Reason: Shortness of Breath Stop: 07/28/16 20:37 Magnesium Hydroxide (Milk Of Magnesia) 30 ml PO HS PRN PRN Reason: Constipation Stop: 07/28/16 20:37 Meclizine HCl (Antivert) 25 mg PO DAILY PRN PRN Reason: Nausea / Vomiting Stop: 07/28/16 20:47 Metformin HCl (Glucophage) 850 mg PO BIDWM [facility] Stop: 07/29/16 07:59 Last Admin: 06/04/16 09:48 Dose: 850 mg Miscellaneous (Vancomycin Iv Per Pharmacy) 1 ea [facility] PRN PRN PRN Reason: PROTOCOL Stop: 07/31/16 14:47 Mupirocin (Bactroban Oint) 1 appl NS BID [facility] Stop: 06/05/16 09:01 Last Admin: 06/04/16 09:48 Dose: 1 appl Ondansetron HCl (Zofran) 4 mg IVP Q6H PRN PRN Reason: Nausea / Vomiting Stop: 07/28/16 20:37 Last Admin: 05/30/16 12:42 Dose: 4 mg Potassium Chloride (Klor-Con) 40 meq PO X1 [facility] Stop: 06/04/16 17:01 Sodium Bicarbonate (Sodium Bicarbonate) 650 mg PO BID [facility] PRN Reason: Protocol Stop: 07/31/16 16:59 Last Admin: 06/04/16 09:48 Dose: 650 mg Zolpidem Tartrate (Ambien) 5 mg PO HS PRN PRN Reason: Insomnia Stop: 07/28/16 20:37 General: alert HEENT: NC/AT, PERRLA Neck: Supple Lungs: CTAB Cardiovascular: RRR, Normal S1, Normal S2, without murmur Abdomen: soft non-tender Extremities: clear Neurological: no change Internal Medicine Assmt/Plan - Assessment Assessment: RIGHT LL PNA MRSA SPUTUM Diabetes out of control dehydration dka - Plan Plan: continue ivabx SUPPLEMENTAL O2 NEEDED BRONCHODILATORS
[2016-06-04] MEDS ORDERED: Potassium Chloride 20 mEq ER Tab PO ONE (17:00)
[2016-06-05] MEDS: INSULIN ASPART SLIDING SCALE 100 UNITS/ML UNIT SUBQ SCH ×4 (06:46→22:01)
[2016-06-05] MEDS: Sodium Chloride 0.9% 1,000 ML IV SCH (11:37)
[2016-06-05 15:02] LABS: HEMATOCRIT 35.8 % (39.0-49.0); HEMOGLOBIN 12.5 gm/dL (13.2-17.3); MEAN CELL VOLUME 90.8 fl (80-99); MEAN CORPUSCULAR HEMOGLOBIN 31.6 pg (26.0-30.0); MEAN CORPUSCULAR HGB CONC 34.8 pg (28.0-36.0); MEAN PLATELET VOLUME 7.3 fl; PLATELET COUNT 387 Th/cmm (150-400); RED BLOOD COUNT 3.94 Mil/cmm (4.30-5.70); RED CELL DISTRIBUTION WIDTH 11.1 % (11.5-20.0); WHITE BLOOD COUNT 7.5 Th/cmm (4.8-10.8)
--- NOTE | 2016-06-05 15:07 | Internal Medicine Prog Note ---
Internal Medicine Subjective - Subjective Patient seen and examined:: with staff, chart reviewed Patient is:: awake, interactive, arousable Patient Complaints of:: congestion Per staff patient is:: no adverse event, noncompliant Internal Medicine Objective - Results Result Diagrams: 06/04/16 06:26 06/04/16 06:26 Recent Labs: Laboratory Last Values WBC 7.7 Th/cmm (4.8-10.8) 06/04/16 06:26 RBC 4.05 Mil/cmm (4.30-5.70) L 06/04/16 06:26 Hgb 12.7 gm/dL (13.2-17.3) L 06/04/16 06:26 Hct 36.3 % (39.0-49.0) L 06/04/16 06:26 MCV 89.7 fl (80-99) 06/04/16 06:26 MCH 31.4 pg (26.0-30.0) H 06/04/16 06:26 MCHC Differential 35.0 pg (28.0-36.0) 06/04/16 06:26 RDW 11.1 % (11.5-20.0) L 06/04/16 06:26 Plt Count 340 Th/cmm (150-400) 06/04/16 06:26 MPV 7.3 fl 06/04/16 06:26 Neutrophils % 69.2 % (40.0-80.0) 06/03/16 05:00 Band Neutrophils % 6 % (0-10) 06/04/16 06:26 Lymphocytes % 13.7 % (20.0-50.0) L 06/03/16 05:00 Monocytes % 12.7 % (2.0-10.0) H 06/03/16 05:00 Eosinophils % 1.4 % (0.0-5.0) 06/03/16 05:00 Basophils % 3.0 % (0.0-2.0) H 06/03/16 05:00 Neutrophils (Manual) 55 % (40-80) 06/04/16 06:26 Lymphocytes 19 % (20-50) L 06/04/16 06:26 Monocytes 15 % (2-10) H 06/04/16 06:26 Eosinophils 3 % (0-5) 06/04/16 06:26 Basophils 2 % (0-3) 06/04/16 06:26 Platelet Estimate ADEQUATE (NORMAL) 06/04/16 06:26 Platelet Morphology GIANT PLATELETS SEEN (NORMAL) 06/04/16 06:26 RBC Morph Micro Appear NORMAL (NORMAL) 06/04/16 06:26 Specimen Source Arterial 05/31/16 09:35 Sample Site RB 05/31/16 09:35 pH 7.32 (7.35-7.45) L 05/31/16 09:35 pCO2 23.0 mmHg (35.0-45.0) L* 05/31/16 09:35 pO2 94.0 mmHg (80.0-100.0) 05/31/16 09:35 HCO3 11.9 mmol/L (20.0-26.0) L 05/31/16 09:35 Base Excess -12.3 mmol/L (-3.0-3.0) L 05/31/16 09:35 O2 Saturation 97.0 % (92.0-100.0) 05/31/16 09:35 Derrick Test NA 05/31/16 09:35 Vent Rate NA 05/31/16 09:35 Inspired O2 21 05/31/16 09:35 Tidal Volume NA 05/31/16 09:35 PEEP NA 05/31/16 09:35 Pressure (ins/psv/peep) NA 05/31/16 09:35 Critical Value E.WOOD 05/31/16 09:35 Sodium 132 mEq/L (136-145) L 06/04/16 06:26 Potassium 3.5 mEq/L (3.5-5.1) 06/04/16 06:26 Chloride 97 mEq/L (98-107) L 06/04/16 06:26 Carbon Dioxide 26.3 mEq/L (21.0-31.0) 06/04/16 06:26 Anion Gap 12.2 (7.0-16.0) 06/04/16 06:26 BUN 9 mg/dL (7-25) 06/04/16 06:26 Creatinine 0.5 mg/dL (0.7-1.3) L 06/04/16 06:26 Est GFR ( Amer) > 60.0 ml/min 06/04/16 06:26 Est GFR (Non-Af Amer) > 60.0 ml/min 06/04/16 06:26 BUN/Creatinine Ratio 18.0 06/04/16 06:26 Glucose 307 mg/dL (70-105) H 06/04/16 06:26 POC Glucose 361 MG/DL (70 - 105) H 06/05/16 10:44 Hemoglobin A1c % 14.0 % (4.0-6.0) H 05/29/16 21:03 Calcium 8.7 mg/dL (8.6-10.3) 06/04/16 06:26 Phosphorus 2.9 mg/dL (2.5-5.0) 06/04/16 06:26 Magnesium 1.8 mg/dL (1.9-2.7) L 06/04/16 06:26 Total Bilirubin 0.4 mg/dL (0.3-1.0) 06/04/16 06:26 AST 8 U/L (13-39) L 06/04/16 06:26 ALT 6 U/L (7-52) L 06/04/16 06:26 Alkaline Phosphatase 82 U/L (34-104) 06/04/16 06:26 Total Protein 6.8 gm/dL (6.0-8.3) 06/04/16 06:26 Albumin 2.9 gm/dL (4.2-5.5) L 06/04/16 06:26 Globulin 3.9 gm/dL 06/04/16 06:26 Albumin/Globulin Ratio 0.7 (1.0-1.8) L 06/04/16 06:26 Triglycerides 94 mg/dL (<150) 05/30/16 06:45 Cholesterol 161 mg/dL (<200) 05/30/16 06:45 LDL Cholesterol Direct 103 mg/dL (75-193) 05/30/16 06:45 HDL Cholesterol 51 mg/dL (23-92) 05/30/16 06:45 Vitamin B12 1247 pg/mL (211-946) H 05/30/16 06:45 Folic Acid 11.8 ng/mL (>3.0) 05/30/16 06:45 TSH 0.41 uIU/ml (0.34-5.60) 05/30/16 06:45 Urine Source CLEAN C 06/01/16 08:50 Urine Color YELLOW 06/01/16 08:50 Urine Clarity SL. CLOUDY (CLEAR) 06/01/16 08:50 Urine pH 6.0 06/01/16 08:50 Ur Specific [place] 1.020 (1.005-1.030) 06/01/16 08:50 Urine Protein 30 mg/dL (NEGATIVE) H 06/01/16 08:50 Urine Glucose (UA) 500 mg/dL (NEGATIVE) H 06/01/16 08:50 Urine Clinitest 1000 mg/dL (NEGATIVE) 06/01/16 08:50 Urine Ketones >=80 mg/dL (NEGATIVE) H 06/01/16 08:50 Urine Blood NEGATIVE (NEGATIVE) 06/01/16 08:50 Urine Nitrate NEGATIVE (NEGATIVE) 06/01/16 08:50 Urine Bilirubin SMALL (NEGATIVE) H 06/01/16 08:50 Urine Urobilinogen 1.0 E.U./dL (0.2 - 1.0) 06/01/16 08:50 Ur Leukocyte Esterase NEGATIVE (NEGATIVE) 06/01/16 08:50 Urine RBC NONE SEEN /hpf (0-5) 06/01/16 08:50 Urine WBC 0-2 /hpf (0-5) 06/01/16 08:50 Ur Epithelial Cells RARE /lpf (FEW) 06/01/16 08:50 Urine Bacteria NONE SEEN /hpf (NONE SEEN) 06/01/16 08:50 Vancomycin Trough 4.8 ug/mL (10-20) L 06/04/16 12:06 - Physical Exam Vitals and I&O: Vital Signs Temp 99.3 F 06/05/16 12:11 Pulse 82 06/05/16 12:11 Resp 19 06/05/16 12:11 BP 102/78 06/05/16 12:11 Pulse Ox 96 06/05/16 12:11 Intake & Output 06/04/16 06/05/16 06/05/16 18:59 06:59 18:59 Intake Total 3150 1450 500 Output Total 1350 Balance 1800 1450 500 Intake: Intake, IV Amount 1350 1450 250 Piperacillin Sodium/ 100 200 Tazobact 4.5 gm In Sodium Chloride 0.9% 100 ml @ 100 mls/hr IV Q8HR [facility] Rx #:[id number] Sodium Chloride 0.9% 1, 1000 000 ml @ 125 mls/hr IV . Q8H [facility] Rx#:[id number] Sodium Chloride 0.9% 1, 1000 000 ml @ 80 mls/hr IV . [id number] [facility] Rx#:[id number] Vancomycin HCl 1.25 gm In 250 Sodium Chloride 0.9% 250 ml @ 165 mls/hr IV Q8H [facility] Rx#:[id number] Vancomycin HCl 1.25 gm In 250 250 Sodium Chloride 0.9% 250 ml @ 165 mls/hr IV Q8H [facility] Rx#:[id number] Oral 1800 250 Output: Urine 1350 Other: # Voids 4 3 # Bowel Movements 1 Stool Characteristics Soft Soft Soft Formed Formed Formed Active Medications: Current Medications Acetaminophen (Tylenol) 650 mg PO Q6H PRN PRN Reason: Mild Pain/Headache/T above 101 Stop: 07/28/16 20:37 Last Admin: 06/01/16 04:16 Dose: 650 mg Al Hydrox/Mg Hydrox/Simethicone (Maalox) 30 ml PO Q6H PRN PRN Reason: GI DISTRESS Stop: 07/28/16 20:37 Last Admin: 05/29/16 23:20 Dose: 30 ml Albuterol/Ipratropium (Duoneb Neb) 3 ml HHN Q4H PRN PRN Reason: Wheezing Stop: 07/28/16 20:37 Last Admin: 06/04/16 19:43 Dose: 3 ml Clonidine HCl (Catapres) 0.1 mg PO Q6HR PRN PRN Reason: SBP GREATER THAN 160 Stop: 07/28/16 20:47 Guaifenesin (Robitussin) 200 mg PO Q4HR PRN PRN Reason: Cough or Congestion Stop: 07/28/16 20:47 Heparin Sodium (Porcine) (Heparin) 5,000 units SUBQ Q12HR [facility] Stop: 07/28/16 20:59 Last Admin: 06/05/16 09:09 Dose: Not Given Piperacillin Sod/Tazobactam (Sod 4.5 gm/ Sodium Chloride) 100 mls @ 100 mls/hr IV Q8HR [facility] Stop: 07/30/16 20:59 Last Admin: 06/05/16 12:11 Dose: 100 mls/hr Sodium Chloride (Nacl 0.9%) 1,000 mls @ 80 mls/hr IV .[id number] [facility] Stop: 08/03/16 14:08 Last Admin: 06/05/16 11:37 Dose: 80 mls/hr Vancomycin HCl 1.25 gm/ Sodium (Chloride) 250 mls @ 165 mls/hr IV Q8H [facility] Stop: 08/04/16 01:59 Last Infusion: 06/05/16 11:40 Dose: Infused Insulin Aspart (Novolog Insulin Sliding Scale) 0 units SUBQ ACHS [facility] PRN Reason: Protocol Stop: 07/29/16 20:59 Last Admin: 06/05/16 11:33 Dose: 15 units Ipratropium [place] (Atrovent Neb 0.5mg/2.5ml) 0.5 mg HHN Q6H PRN PRN Reason: Shortness of Breath Stop: 07/28/16 20:37 Magnesium Hydroxide (Milk Of Magnesia) 30 ml PO HS PRN PRN Reason: Constipation Stop: 07/28/16 20:37 Meclizine HCl (Antivert) 25 mg PO DAILY PRN PRN Reason: Nausea / Vomiting Stop: 07/28/16 20:47 Miscellaneous (Vancomycin Iv Per Pharmacy) 1 ea [facility] PRN PRN PRN Reason: PROTOCOL Stop: 07/31/16 14:47 Ondansetron HCl (Zofran) 4 mg IVP Q6H PRN PRN Reason: Nausea / Vomiting Stop: 07/28/16 20:37 Last Admin: 05/30/16 12:42 Dose: 4 mg Sodium Bicarbonate (Sodium Bicarbonate) 650 mg PO BID [facility] PRN Reason: Protocol Stop: 07/31/16 16:59 Last Admin: 06/05/16 09:06 Dose: 650 mg Zolpidem Tartrate (Ambien) 5 mg PO HS PRN PRN Reason: Insomnia Stop: 07/28/16 20:37 General: alert, thin HEENT: NC/AT, PERRLA Neck: Supple, No JVD Lungs: congested, rales Cardiovascular: RRR, Normal S1, Normal S2 Abdomen: soft non-tender, non-distended Extremities: excoriation Neurological: no change Internal Medicine Assmt/Plan - Assessment Assessment: RIGHT LL PNA MRSA SPUTUM Diabetes out of control dehydration s\p dka noncompliant - Plan Plan: cont on iv abx o2 bronchodilator ada iss dw rn pulm follow up
[2016-06-05 15:10] LABS: ANION GAP 11.7 (7.0-16.0); BUN - UREA NITROGEN 11 mg/dL (7-25); CALCIUM SERUM 8.8 mg/dL (8.6-10.3); CARBON DIOXIDE 26.1 mEq/L (21.0-31.0); CHLORIDE 97 mEq/L (98-107); CREATININE - SERUM 0.5 mg/dL (0.7-1.3); GLUCOSE 243 mg/dL (70-105); POTASSIUM SERUM 3.8 mEq/L (3.5-5.1); SODIUM SERUM 131 mEq/L (136-145)
[2016-06-05 15:43] LABS: BAND NEUTROPHILE 0 % (0-10); NEUTROPHILS 61 % (40-80); TOTAL CELLS COUNTED 100
[2016-06-05 15:44] LABS: BASOPHIL 0 % (0-3); EOSINOPHIL 2 % (0-5); PLATELET ESTIMATE ADEQUATE (NORMAL); PLATELET MORPHOLOGY NORMAL (NORMAL)
[2016-06-06] MEDS: INSULIN ASPART SLIDING SCALE 100 UNITS/ML UNIT SUBQ SCH ×2 (07:06→11:16)
--- NOTE | 2016-06-06 11:33 | Diagnostic Imaging Report ---
Chest x-ray (2 views) HISTORY: Cough Compared with the prior exam of 06/02/2016, there remains abnormal parenchymal density within the right lower lobe. Suggestion of a minimal right pleural effusion. Again, pneumonia cannot be excluded. The heart size is normal. IMPRESSION: 1. Persistent density right lower lobe with suggestion of a minimal right pleural effusion that corresponds to changes noted on the earlier CT scan of 05/30/2016. Pneumonia cannot be excluded. Clinical correlation is needed.
--- NOTE | 2016-06-06 11:54 | Internal Medicine Prog Note ---
Internal Medicine Subjective - Subjective Service Date: 06/06/16 ([facility] dictated [id number]) Internal Medicine Objective - Results Result Diagrams: 06/05/16 14:39 06/05/16 14:39 Recent Labs: Laboratory Last Values WBC 7.5 Th/cmm (4.8-10.8) 06/05/16 14:39 RBC 3.94 Mil/cmm (4.30-5.70) L 06/05/16 14:39 Hgb 12.5 gm/dL (13.2-17.3) L 06/05/16 14:39 Hct 35.8 % (39.0-49.0) L 06/05/16 14:39 MCV 90.8 fl (80-99) 06/05/16 14:39 MCH 31.6 pg (26.0-30.0) H 06/05/16 14:39 MCHC Differential 34.8 pg (28.0-36.0) 06/05/16 14:39 RDW 11.1 % (11.5-20.0) L 06/05/16 14:39 Plt Count 387 Th/cmm (150-400) 06/05/16 14:39 MPV 7.3 fl 06/05/16 14:39 Neutrophils % 69.2 % (40.0-80.0) 06/03/16 05:00 Band Neutrophils % 0 % (0-10) 06/05/16 14:39 Lymphocytes % 13.7 % (20.0-50.0) L 06/03/16 05:00 Monocytes % 12.7 % (2.0-10.0) H 06/03/16 05:00 Eosinophils % 1.4 % (0.0-5.0) 06/03/16 05:00 Basophils % 3.0 % (0.0-2.0) H 06/03/16 05:00 Neutrophils (Manual) 61 % (40-80) 06/05/16 14:39 Lymphocytes 27 % (20-50) 06/05/16 14:39 Monocytes 10 % (2-10) 06/05/16 14:39 Eosinophils 2 % (0-5) 06/05/16 14:39 Basophils 0 % (0-3) 06/05/16 14:39 Platelet Estimate ADEQUATE (NORMAL) 06/05/16 14:39 Platelet Morphology NORMAL (NORMAL) 06/05/16 14:39 RBC Morph Micro Appear NORMAL (NORMAL) 06/05/16 14:39 Specimen Source Arterial 05/31/16 09:35 Sample Site RB 05/31/16 09:35 pH 7.32 (7.35-7.45) L 05/31/16 09:35 pCO2 23.0 mmHg (35.0-45.0) L* 05/31/16 09:35 pO2 94.0 mmHg (80.0-100.0) 05/31/16 09:35 HCO3 11.9 mmol/L (20.0-26.0) L 05/31/16 09:35 Base Excess -12.3 mmol/L (-3.0-3.0) L 05/31/16 09:35 O2 Saturation 97.0 % (92.0-100.0) 05/31/16 09:35 Derrick Test NA 05/31/16 09:35 Vent Rate NA 05/31/16 09:35 Inspired O2 21 05/31/16 09:35 Tidal Volume NA 05/31/16 09:35 PEEP NA 05/31/16 09:35 Pressure (ins/psv/peep) NA 05/31/16 09:35 Critical Value E.WOOD 05/31/16 09:35 Sodium 131 mEq/L (136-145) L 06/05/16 14:39 Potassium 3.8 mEq/L (3.5-5.1) 06/05/16 14:39 Chloride 97 mEq/L (98-107) L 06/05/16 14:39 Carbon Dioxide 26.1 mEq/L (21.0-31.0) 06/05/16 14:39 Anion Gap 11.7 (7.0-16.0) 06/05/16 14:39 BUN 11 mg/dL (7-25) 06/05/16 14:39 Creatinine 0.5 mg/dL (0.7-1.3) L 06/05/16 14:39 Est GFR ( Amer) > 60.0 ml/min 06/05/16 14:39 Est GFR (Non-Af Amer) > 60.0 ml/min 06/05/16 14:39 BUN/Creatinine Ratio 22.0 06/05/16 14:39 Glucose 405 mg/dL (70-105) H 06/06/16 09:00 POC Glucose 460 MG/DL (70 - 105) H* 06/06/16 06:10 Hemoglobin A1c % 14.0 % (4.0-6.0) H 05/29/16 21:03 Calcium 8.8 mg/dL (8.6-10.3) 06/05/16 14:39 Phosphorus 2.9 mg/dL (2.5-5.0) 06/04/16 06:26 Magnesium 1.8 mg/dL (1.9-2.7) L 06/04/16 06:26 Total Bilirubin 0.4 mg/dL (0.3-1.0) 06/04/16 06:26 AST 8 U/L (13-39) L 06/04/16 06:26 ALT 6 U/L (7-52) L 06/04/16 06:26 Alkaline Phosphatase 82 U/L (34-104) 06/04/16 06:26 Total Protein 6.8 gm/dL (6.0-8.3) 06/04/16 06:26 Albumin 2.9 gm/dL (4.2-5.5) L 06/04/16 06:26 Globulin 3.9 gm/dL 06/04/16 06:26 Albumin/Globulin Ratio 0.7 (1.0-1.8) L 06/04/16 06:26 Triglycerides 94 mg/dL (<150) 05/30/16 06:45 Cholesterol 161 mg/dL (<200) 05/30/16 06:45 LDL Cholesterol Direct 103 mg/dL (75-193) 05/30/16 06:45 HDL Cholesterol 51 mg/dL (23-92) 05/30/16 06:45 Vitamin B12 1247 pg/mL (211-946) H 05/30/16 06:45 Folic Acid 11.8 ng/mL (>3.0) 05/30/16 06:45 TSH 0.41 uIU/ml (0.34-5.60) 05/30/16 06:45 Urine Source CLEAN C 06/01/16 08:50 Urine Color YELLOW 06/01/16 08:50 Urine Clarity SL. CLOUDY (CLEAR) 06/01/16 08:50 Urine pH 6.0 06/01/16 08:50 Ur Specific [place] 1.020 (1.005-1.030) 06/01/16 08:50 Urine Protein 30 mg/dL (NEGATIVE) H 06/01/16 08:50 Urine Glucose (UA) 500 mg/dL (NEGATIVE) H 06/01/16 08:50 Urine Clinitest 1000 mg/dL (NEGATIVE) 06/01/16 08:50 Urine Ketones >=80 mg/dL (NEGATIVE) H 06/01/16 08:50 Urine Blood NEGATIVE (NEGATIVE) 06/01/16 08:50 Urine Nitrate NEGATIVE (NEGATIVE) 06/01/16 08:50 Urine Bilirubin SMALL (NEGATIVE) H 06/01/16 08:50 Urine Urobilinogen 1.0 E.U./dL (0.2 - 1.0) 06/01/16 08:50 Ur Leukocyte Esterase NEGATIVE (NEGATIVE) 06/01/16 08:50 Urine RBC NONE SEEN /hpf (0-5) 06/01/16 08:50 Urine WBC 0-2 /hpf (0-5) 06/01/16 08:50 Ur Epithelial Cells RARE /lpf (FEW) 06/01/16 08:50 Urine Bacteria NONE SEEN /hpf (NONE SEEN) 06/01/16 08:50 Vancomycin Trough 7.8 ug/mL (10-20) L 06/06/16 09:00 - Physical Exam Vitals and I&O: Vital Signs Temp 98.2 F 06/06/16 04:00 Pulse 72 06/06/16 08:00 Resp 20 06/06/16 10:01 BP 112/66 06/06/16 04:00 Pulse Ox 97 06/06/16 08:00 Intake & Output 06/05/16 06/06/16 06/06/16 18:59 06:59 18:59 Intake Total 2700 350 500 Output Total 1 Balance 2699 350 500 Intake: Intake, IV Amount 600 350 Piperacillin Sodium/ 100 100 Tazobact 4.5 gm In Sodium Chloride 0.9% 100 ml @ 100 mls/hr IV Q8HR [facility] Rx #:[id number] Vancomycin HCl 1.25 gm In 500 250 Sodium Chloride 0.9% 250 ml @ 165 mls/hr IV Q8H [facility] Rx#:[id number] Oral 2100 500 Output: Stool 1 Other: # Voids 4 4 # Bowel Movements 1 Stool Characteristics Soft Formed Active Medications: Current Medications Acetaminophen (Tylenol) 650 mg PO Q6H PRN PRN Reason: Mild Pain/Headache/T above 101 Stop: 07/28/16 20:37 Last Admin: 06/01/16 04:16 Dose: 650 mg Al Hydrox/Mg Hydrox/Simethicone (Maalox) 30 ml PO Q6H PRN PRN Reason: GI DISTRESS Stop: 07/28/16 20:37 Last Admin: 05/29/16 23:20 Dose: 30 ml Albuterol/Ipratropium (Duoneb Neb) 3 ml HHN Q4H PRN PRN Reason: Wheezing Stop: 07/28/16 20:37 Last Admin: 06/04/16 19:43 Dose: 3 ml Clonidine HCl (Catapres) 0.1 mg PO Q6HR PRN PRN Reason: SBP GREATER THAN 160 Stop: 07/28/16 20:47 Glipizide (Glucotrol) 20 mg PO BID [facility] Stop: 08/04/16 16:59 Last Admin: 06/06/16 09:06 Dose: 20 mg Guaifenesin (Robitussin) 200 mg PO Q4HR PRN PRN Reason: Cough or Congestion Stop: 07/28/16 20:47 Heparin Sodium (Porcine) (Heparin) 5,000 units SUBQ Q12HR [facility] Stop: 07/28/16 20:59 Last Admin: 06/06/16 09:10 Dose: Not Given Piperacillin Sod/Tazobactam (Sod 4.5 gm/ Sodium Chloride) 100 mls @ 100 mls/hr IV Q8HR [facility] Stop: 07/30/16 20:59 Last Admin: 06/06/16 06:08 Dose: 100 mls/hr Sodium Chloride (Nacl 0.9%) 1,000 mls @ 80 mls/hr IV .[id number] [facility] Stop: 08/03/16 14:08 Last Admin: 06/05/16 11:37 Dose: 80 mls/hr Vancomycin HCl 1.25 gm/ Sodium (Chloride) 250 mls @ 165 mls/hr IV Q8H [facility] Stop: 08/04/16 01:59 Last Admin: 06/06/16 10:40 Dose: 165 mls/hr Insulin Aspart (Novolog Insulin Sliding Scale) 0 units SUBQ ACHS [facility] PRN Reason: Protocol Stop: 07/29/16 20:59 Last Admin: 06/06/16 11:16 Dose: 12 units Ipratropium [place] (Atrovent Neb 0.5mg/2.5ml) 0.5 mg HHN Q6H PRN PRN Reason: Shortness of Breath Stop: 07/28/16 20:37 Magnesium Hydroxide (Milk Of Magnesia) 30 ml PO HS PRN PRN Reason: Constipation Stop: 07/28/16 20:37 Meclizine HCl (Antivert) 25 mg PO DAILY PRN PRN Reason: Nausea / Vomiting Stop: 07/28/16 20:47 Metformin HCl (Glucophage) 1,000 mg PO BIDWM [facility] Stop: 08/04/16 15:04 Last Admin: 06/06/16 09:06 Dose: 1,000 mg Miscellaneous (Vancomycin Iv Per Pharmacy) 1 ea [facility] PRN PRN PRN Reason: PROTOCOL Stop: 07/31/16 14:47 Ondansetron HCl (Zofran) 4 mg IVP Q6H PRN PRN Reason: Nausea / Vomiting Stop: 07/28/16 20:37 Last Admin: 05/30/16 12:42 Dose: 4 mg Sodium Bicarbonate (Sodium Bicarbonate) 650 mg PO BID [facility] PRN Reason: Protocol Stop: 07/31/16 16:59 Last Admin: 06/06/16 09:07 Dose: 650 mg Zolpidem Tartrate (Ambien) 5 mg PO HS PRN PRN Reason: Insomnia Stop: 07/28/16 20:37 Internal Medicine Assmt/Plan - Assessment Assessment: RIGHT LL PNA MRSA SPUTUM Diabetes out of control dehydration dka
[2016-06-06 15:14] LABS: FOLIC ACID 12.6 ng/mL (>3.0)
[2016-06-06] MEDS ORDERED: Vancomycin HCl 1.5 GM in Sodium Chloride 0.9% 500 ML IV SCH (18:00)
--- NOTE | 2016-06-06 19:12 | Discharge Summary ---
FINAL DIAGNOSES: Diabetes out of control, Methicillin-resistant Staphylococcus aureus pneumonia, dehydration, diabetic ketoacidosis, resolved. HISTORY OF PRESENT ILLNESS: This is a 25-year-old male who is a direct admission from [facility]. According to the patient, he was having 1-day history of shortness of breath and a 1-week history of productive cough. The patient states he has been having difficulty expectorating his secretions with his cough, also associated with chest pain that is nonradiating. Due to insurance purposes, the patient is now here at [facility]. PHYSICAL EXAMINATION: GENERAL: The patient is well developed, well nourished, in no acute distress. VITAL SIGNS: Stable. HEENT: Head is normocephalic and atraumatic. NECK: Supple. No mass. LUNGS: Clear bilaterally upon auscultation. HEART: Regular rate and rhythm. No murmurs or gallops. SKIN: Intact, warm to touch. ABDOMEN: Soft, nontender, and nondistended. Positive bowel sounds in all 4 quadrants. HOSPITAL COURSE: During the hospital stay, the patient was admitted to the med/surg unit. The patient had a consultation with Dr. Patel. The patient had a chest x-ray done in the ER and the impression is right lower lobe infiltrates. The patient had a CT of the chest done on 05/30/2016 as well and the impression is extensive right lower lobe infiltrate with areas of consolidation, small right pleural effusion. We obtained a sputum culture from the patient and it was positive for MRSA, so Dr. Patel, [employer], was on the case. The patient was kept on IV antibiotics of vancomycin per pharmacy dose and also of Zosyn 4.5 g. The patient's glucose level will also be monitored during the hospital stay. The patient is being educated on the importance of being complaint with his diabetes and also to refrain from drugs. The patient understood and verbalized. The patient had a repeat chest x-ray done this morning on 06/06/2016 and the impression is persistent density right lower lobe with suggestion of minimal right pleural effusion that corresponds to changes noted on the earlier CT scan. The patient is afebrile. White count within normal limits. For this reason, the patient is now stable for discharge. CONDITION UPON DISCHARGE: Fair. DISPOSITION: The patient is going home. JOB# [id number]
== END 2016-06-06 15:45 | disposition home or self-care (01) | DRG 871 ==
LOC: TELE 18:50 → MSI 06-03 17:21
PROVIDERS: ADMIT Internal Medicine; ATTEND Internal Medicine
DX: A41.9 Sepsis, unspecified organism (principal); J15.212 Pneumonia due to Methicillin resistant Staphylococcus aureus; E13.10 Other specified diabetes mellitus with ketoacidosis without coma; J18.1 Lobar pneumonia, unspecified organism; E86.0 Dehydration; Z87.891 Personal history of nicotine dependence
CPT/HCPCS: 36415-UA; 36600-90; 71010-TC; 71020-TC; 71250-TC; 80048-TC; 80053-TC; 80061-TC; 80202-TC; 81001-TC; 82607-90; 82746-90; 82803-TC; 82947-TC; 82948-90; 83036-90; 83735-TC; 84100-TC; 84443-TC; 85007-TC; 85025-TC; 85027-TC; 87070; 90732; 90779; 90799; 94664; 94760; J1644; J1815; J1956; J2001; J2405; J2543; J3370; J3475; J3480; J7030; J7040; Z7610